=== PATIENT | female | born 1980 | race Caucasian/White ===

== ENCOUNTER 2016-08-18 19:41 | Inpatient (IN) ==
[2016-08-18] MEDS ORDERED: 0.9 % Sodium Chloride 1,000 ML IVC ONE (20:25)
[2016-08-18] MEDS ORDERED: *HR* Morphine 2 MG/ML SYRINGE IVP ONE (20:25)
[2016-08-18] MEDS ORDERED: Ondansetron 4 MG/2 ML VIAL IVP ONE (20:25)
[2016-08-18 20:35] LABS: Bilirubin,Urine Large (Negative); Blood,Urine Large (Negative); Clarity,Urine Cloudy (Clear); Color,Urine Orange (Yellow); Glucose,Urine (UA) Normal (Normal); Ketones,Urine Trace mg/dL (Negative); Leukocyte Esterase,Urine Small (Negative); Nitrite,Urine Negative (Negative); PH,Urine 5.5 pH Units (5.0-8.0); Protein,Urine Negative (Neg-Trace); Specific Gravity,Urine 1.026 (1.010-1.025); Urobilinogen,Urine Normal (Normal)
[2016-08-18 20:36] LABS: Bacteria,Urine None Seen per hpf (None-Few); Hyaline Casts,Urine None Seen per lpf (None-Few); Squamous Epithelial Cell,Urine Many per lpf (None-Few); WBC,Urine 0-3 per hpf (0-3)
[2016-08-18 21:03] LABS: INR 1.6; Prothrombin Time 17.1 Seconds (9.4-12.1)
[2016-08-18 21:05] LABS: Activated Partial Thrombo Time 25.4 Seconds (26.0-36.0)
--- NOTE | 2016-08-18 22:01 | Emergency Department Note ---
Disposition Clinical Impression: Cholecystitis, chronic, Elevated transaminase level Abdominal pain Qualifiers: Abdominal location: unspecified location Qualified Code(s): R10.9 - Unspecified abdominal pain Nausea & vomiting Qualifiers: Vomiting type: unspecified Vomiting Intractability: non-intractable Qualified Code(s): R11.2 - Nausea with vomiting, unspecified Disposition: Admitted As Inpatient Condition: Good Time of Disposition: 01:51 General Adult HPI - General Chief complaint: ED Abdominal Pain Stated complaint: abd pain, yellow skin Time Seen by Provider: 08/18/16 20:18 Source: patient Limitations: no limitations Nursing Notes Reviewed: Yes Vital Signs Reviewed: Yes - History of Present Illness HPI Narrative: Patient presents emergency room today with complaint of jaundice. Family noticed that over the last several days. Patient presented here because she has had intermittent upper abdominal discomfort. She does have a history of IV drug abuse. Currently they are denying fevers chills nausea vomiting diarrhea headaches vision changes chest pain shortness of breath. Her only complaint on presentation here is that her skin and eyes are changing colors Onset (ago): day(s) (5 days) Radiation: non-radiation Pain Severity: mild Pain Scale: 4 Quality: other Consistency: constant Improves with: nothing Worsens with: nothing Associated symptoms: Reports: denies other symptoms Treatments Prior to Arrival: none - Related Data Allergies Allergy/AdvReac Type Severity Reaction Status Date / Time No Known Allergies Allergy Verified 08/18/16 19:56 All systems ED: reviewed and negative except as stated. Constitutional: Denies: fever, chills Eyes: Reports: other (Yellow eyes) Cardiovascular: Denies: chest pain, palpitations Respiratory: Denies: cough, dyspnea, wheezes Gastrointestinal: Reports: nausea, vomiting. Denies: abdominal pain, diarrhea Genitourinary: Denies: dysuria, frequency Musculoskeletal: Denies: back pain Neurological: Denies: headache Psychiatric: Reports: depression Past Medical History - Past Medical History Attestation: Yes The following information was validated with the patient. Source: patient Medical history: Reports: no medical history Psychiatric history: Reports: no psych history - Social History Smoking Status: Current every day smoker Smokeless Tobacco Status: No Alcohol use: Reports: none Drug use: Reports: none Physical Exam - General Limitations: no limitations General appearance: alert, in no apparent distress - Eye Eye exam: Present: normal appearance, PERRL, EOMI, scleral icterus. Absent: conjunctival injection - ENT ENT exam: normal exam, normal oropharynx, mucous membranes moist - Neck Neck exam: Present: normal inspection, full ROM, trachea midline - Chest Chest inspection: Present: normal inspection, symmetric chest wall rise - Respiratory Respiratory exam: Present: normal lung sounds bilaterally - Cardiovascular Cardiovascular exam: Present: regular rate, normal rhythm, normal heart sounds - Abdominal Exam Abdominal exam: Present: soft, tenderness (Mild tenderness to the mid epigastrium and upper quadrant). Absent: Non-Tender, distention, guarding, rebound, rigidity, Locke's sign, Rovsing's sign, tenderness at McBurney's Point - Extremities Exam Extremities exam: Present: normal inspection, full ROM - Neurological Exam Neurological exam: Present: alert, oriented X3, CN II-XII intact, normal gait - Psychiatric Psychiatric exam: Present: normal affect - Skin Skin exam: Present: warm, dry, intact, normal color Course Course Narrative: Patient seen and examined at the time of arrival. See history of present illness. 35-year-old female presenting to the emergency room today in the care of her mother for evaluation of jaundice. Patient has never had jaundice before. Symptom onset was approximately a week ago. Symptoms began getting worse. Patient denies fevers chills nausea vomiting or diarrhea. Denies headache or vision changes.. Patient has a history of IV drug abuse. She does not know if she has hepatitis. Patient has not had any acute abdominal pain over the last several days. She does still have her gallbladder. Physical exam shows a jaundiced appearing female in the eyes sclerae and her oral mucosa. She also has yellowing to her skin. Lungs are clear heart is regular. Abdomen is soft nontender nondistended. no palpable masses or tenderness noted on exam no guarding or rigidity no peritoneal-like symptoms. Patient provided with pain medication as needed nausea medication. She will also have labs CT imaging of the abdomen ordered with concern for acute cholecystitis, cholangitis, hepatitis. Disposition pending workup and evaluation. Vital signs stable patient is afebrile - Reevaluation(s) Reevaluation #1: Patient found to have it appears to be possible acute or chronic cholecystitis. No other acute signs of infectious etiology on CT scan. Imaging is otherwise negative. Labs are coming back with no specific derangements. LFTs are still pending. Disposition undetermined at this time. Vital signs stable throughout the course of care. Patient to have right upper quadrant ultrasound ordered to address for an acute signs of cholecystitis. We will continue to monitor as his imaging source is completed. Time: 22:25 Reevaluation #2: Patient found to have wall thickening stranding and pericholecystic fluid by ultrasound. Transaminases are also significantly elevated. We contacted the on -call surgeon Dr. Blunt. We reviewed the patient's [place] presentation medical history. He feels this is most likely medical related issues including acute hepatitis. He recommended hospital admission and will follow along in consultation. Hospitalist was contacted. and I reviewed the patient's presentation symptoms medical issues. He recommended antibiotic regimen and chest x-ray for thoroughness of course of care. Otherwise he had no other concerns at this point the patient Yue the hospital for evaluation of jaundice, liver use, possible acute on chronic cholecystitis. Patient is comfortable performed the plan. She is resting in the bed at this time. Antibiotic regimen to be started. IV access obtained. We will continue monitoring in emergency room until the admission process is completed Time: 01:49 Vital Signs Temperature 98.0 F 08/18/16 19:56 Pulse Rate 76 08/18/16 19:56 Respiratory Rate 16 08/18/16 19:56 Blood Pressure 117/76 08/18/16 19:56 O2 Sat by Pulse Oximetry 98 08/18/16 19:56 Temperature 98.0 F 08/18/16 19:56 Pulse Rate 75 08/19/16 01:43 Respiratory Rate 20 08/19/16 01:43 Blood Pressure 119/89 08/19/16 01:43 O2 Sat by Pulse Oximetry 97 08/19/16 01:43 Oxygen Delivery Oxygen Delivery Room Air Medical Decision Making - MDM Narrative Medical decision making narrative: Acute biliary obstruction, elevated transaminases, jaundice, rule out cholecystitis - Medical Records Medical records reviewed: Yes I reviewed the patient's medical records. - Lab Data Lab results reviewed: Yes I reviewed the patient's lab results. Result diagrams: 08/18/16 22:15 08/18/16 22:15 Lab Results 08/18/16 08/18/16 08/18/16 Range/Units 20:20 20:20 20:47 WBC (4.3-11.1) K/mcL RBC (3.82-4.97) M/mcL Hgb (11.5-15.4) g/dL Hct (35.3-44.9) % MCV (83.0-100.0) fL MCH (28.0-33.3) pg MCHC (31.6-35.5) g/dL RDW (11.5-14.5) % Plt Count (140-400) K/mcL MPV (9.4-12.4) fL Immature Gran % (0-4) % Seg Neutrophils % % Lymphocytes % % Monocytes % % Eosinophils % % Basophils % % Neutrophils # (1.6-8.9) K/mcL Lymphocytes # (0.6-4.6) K/mcL Monocytes # (0.0-1.3) K/mcL Eosinophils # (0.0-0.6) K/mcL Basophils # (0.0-0.2) K/mcL Immature Plt Fraction (1.1-6.1) % PT 17.1 H (9.4-12.1) Seconds INR 1.6 APTT 25.4 L (26.0-36.0) Seconds Sodium (136-145) mEq/L Potassium (3.5-4.5) mEq/L Chloride (98-109) mEq/L Carbon Dioxide (19-29) mEq/L BUN (7-20) mg/dL Creatinine (0.57-1.11) mg/dL Est GFR ( Amer) (> 60) Est GFR (Non-Af Amer) (> 60) BUN/Creatinine Ratio (6-26) Glucose (70-99) mg/dL Calculated Osmolality (280-300) Calcium (8.6-10.8) mg/dL Total Bilirubin (0.2-1.2) mg/dL Direct Bilirubin (0.0-0.5) mg/dL Indirect Bilirubin (0.0-1.2) mg/dL AST (5-34) Units/L ALT (0-55) Units/L Alkaline Phosphatase (38-126) Units/L Serum Total Protein (6.0-8.3) g/dL Albumin (3.5-5.0) g/dL Globulin (2.4-3.5) g/dL Albumin/Globulin Ratio (1.1-2.2) Lipase (8-78) Units/L Urine Color [place] A (Yellow) Urine Clarity Cloudy A (Clear) Urine pH 5.5 (5.0-8.0) pH Units Ur Specific [place] 1.026 H (1.010-1.025) Urine Protein Negative (Neg-Trace) mg/dL Urine Glucose (UA) Normal (Normal) mg/dL Urine Ketones Trace H (Negative) mg/dL Urine Blood Large H (Negative) Urine Nitrite Negative (Negative) Urine Bilirubin Large H (Negative) Urine Urobilinogen Normal (Normal) mg/dL Ur Leukocyte Esterase Small H (Negative) Urine Microscopic RBC 5-15 H (0-3) per hpf Urine Microscopic WBC 0-3 (0-3) per hpf Ur Squamous Epith Cells Many H (None-Few) per lpf Urine Bacteria None Seen (None-Few) per hpf Hyaline Casts None Seen (None-Few) per lpf Ur Culture Indicated? YES A (NO) Urine Test Negative (Negative) Specimen Rejected 08/18/16 08/18/16 08/18/16 Range/Units 21:01 21:04 22:15 WBC 6.0 (4.3-11.1) K/mcL RBC 3.88 (3.82-4.97) M/mcL Hgb 11.0 L (11.5-15.4) g/dL Hct 32.5 L (35.3-44.9) % MCV 83.8 (83.0-100.0) fL MCH 28.4 (28.0-33.3) pg MCHC 33.8 (31.6-35.5) g/dL RDW 19.2 H (11.5-14.5) % Plt Count 191 (140-400) K/mcL MPV 11.8 (9.4-12.4) fL Immature Gran % 0.3 (0-4) % Seg Neutrophils % 59.6 % Lymphocytes % 26.5 % Monocytes % 10.9 % Eosinophils % 2.0 % Basophils % 0.7 % Neutrophils # 3.6 (1.6-8.9) K/mcL Lymphocytes # 1.6 (0.6-4.6) K/mcL Monocytes # 0.7 (0.0-1.3) K/mcL Eosinophils # 0.1 (0.0-0.6) K/mcL Basophils # 0.0 (0.0-0.2) K/mcL Immature Plt Fraction 6.9 H (1.1-6.1) % PT (9.4-12.1) Seconds INR APTT (26.0-36.0) Seconds Sodium (136-145) mEq/L Potassium (3.5-4.5) mEq/L Chloride (98-109) mEq/L Carbon Dioxide (19-29) mEq/L BUN (7-20) mg/dL Creatinine (0.57-1.11) mg/dL Est GFR ( Amer) (> 60) Est GFR (Non-Af Amer) (> 60) BUN/Creatinine Ratio (6-26) Glucose (70-99) mg/dL Calculated Osmolality (280-300) Calcium (8.6-10.8) mg/dL Total Bilirubin (0.2-1.2) mg/dL Direct Bilirubin (0.0-0.5) mg/dL Indirect Bilirubin (0.0-1.2) mg/dL AST (5-34) Units/L ALT (0-55) Units/L Alkaline Phosphatase (38-126) Units/L Serum Total Protein (6.0-8.3) g/dL Albumin (3.5-5.0) g/dL Globulin (2.4-3.5) g/dL Albumin/Globulin Ratio (1.1-2.2) Lipase (8-78) Units/L Urine Color (Yellow) Urine Clarity (Clear) Urine pH (5.0-8.0) pH Units Ur Specific [place] (1.010-1.025) Urine Protein (Neg-Trace) mg/dL Urine Glucose (UA) (Normal) mg/dL Urine Ketones (Negative) mg/dL Urine Blood (Negative) Urine Nitrite (Negative) Urine Bilirubin (Negative) Urine Urobilinogen (Normal) mg/dL Ur Leukocyte Esterase (Negative) Urine Microscopic RBC (0-3) per hpf Urine Microscopic WBC (0-3) per hpf Ur Squamous Epith Cells (None-Few) per lpf Urine Bacteria (None-Few) per hpf Hyaline Casts (None-Few) per lpf Ur Culture Indicated? (NO) Urine Test (Negative) Specimen Rejected Miscellaneous Hemolyzed 08/18/16 Range/Units 22:15 WBC (4.3-11.1) K/mcL RBC (3.82-4.97) M/mcL Hgb (11.5-15.4) g/dL Hct (35.3-44.9) % MCV (83.0-100.0) fL MCH (28.0-33.3) pg MCHC (31.6-35.5) g/dL RDW (11.5-14.5) % Plt Count (140-400) K/mcL MPV (9.4-12.4) fL Immature Gran % (0-4) % Seg Neutrophils % % Lymphocytes % % Monocytes % % Eosinophils % % Basophils % % Neutrophils # (1.6-8.9) K/mcL Lymphocytes # (0.6-4.6) K/mcL Monocytes # (0.0-1.3) K/mcL Eosinophils # (0.0-0.6) K/mcL Basophils # (0.0-0.2) K/mcL Immature Plt Fraction (1.1-6.1) % PT (9.4-12.1) Seconds INR APTT (26.0-36.0) Seconds Sodium 137 (136-145) mEq/L Potassium 3.4 L (3.5-4.5) mEq/L Chloride 106 (98-109) mEq/L Carbon Dioxide 24 (19-29) mEq/L BUN 7 (7-20) mg/dL Creatinine 0.66 (0.57-1.11) mg/dL Est GFR ( Amer) > 60 (> 60) Est GFR (Non-Af Amer) > 60 (> 60) BUN/Creatinine Ratio 11 (6-26) Glucose 96 (70-99) mg/dL Calculated Osmolality 282 (280-300) Calcium 8.5 L (8.6-10.8) mg/dL Total Bilirubin 11.3 H (0.2-1.2) mg/dL Direct Bilirubin 8.5 H (0.0-0.5) mg/dL Indirect Bilirubin 2.8 H (0.0-1.2) mg/dL AST 1228 H (5-34) Units/L ALT 992 H (0-55) Units/L Alkaline Phosphatase 269 H (38-126) Units/L Serum Total Protein 5.9 L (6.0-8.3) g/dL Albumin 2.4 L (3.5-5.0) g/dL Globulin 3.5 (2.4-3.5) g/dL Albumin/Globulin Ratio 0.7 L (1.1-2.2) Lipase 23 (8-78) Units/L Urine Color (Yellow) Urine Clarity (Clear) Urine pH (5.0-8.0) pH Units Ur Specific [place] (1.010-1.025) Urine Protein (Neg-Trace) mg/dL Urine Glucose (UA) (Normal) mg/dL Urine Ketones (Negative) mg/dL Urine Blood (Negative) Urine Nitrite (Negative) Urine Bilirubin (Negative) Urine Urobilinogen (Normal) mg/dL Ur Leukocyte Esterase (Negative) Urine Microscopic RBC (0-3) per hpf Urine Microscopic WBC (0-3) per hpf Ur Squamous Epith Cells (None-Few) per lpf Urine Bacteria (None-Few) per hpf Hyaline Casts (None-Few) per lpf Ur Culture Indicated? (NO) Urine Test (Negative) Specimen Rejected - Radiology Data Radiology results reviewed: Yes I reviewed the patient's radiology results. CT imaging is concerning for nonobstructive gallbladder related illness. Ultrasound confirms wall thickening with inflammation and stranding around the gallbladder itself. No visible dilated common bile duct at this time. Attestation Statement - Attestation Attestation: I examined this patient and my medical decision-making was reviewed with the [employer] P[employer] ASSEMBLY MACHINE OPERATOR/PA/Advanced Practice Nurse/Resident Physician. I agree with the documented findings, disposition and treatment plan as described except to the extent set forth below. Patient presents to the emergency department complaining of jaundice. Mom is a nurse and states she noticed it about a week ago. Patient has a history of IV drug use. Denies any history of hepatitis that she knows of. On examination she is severely jaundiced. Abdomen soft with epigastric tenderness. Plan. Labs hepatitis profile. CT abdomen. Patient with likely chronic cholecystitis. Discussed with surgery who will see in consult. Antibiotic given. Admitted to medicine.
[2016-08-18] MEDS ORDERED: *HR* HYDROcodone/Acet 5/325 mg TABLET PO ONE (22:24)
[2016-08-18] MEDS ORDERED: Famotidine 20 MG TABLET PO ONE (22:24)
[2016-08-18 22:28] LABS: Basophils % 0.7 %; Eosinophils # 0.1 K/mcL (0.0-0.6); Hematocrit 32.5 % (35.3-44.9); Immature Granulocytes % 0.3 % (0-4); Immature Platelets 6.9 % (1.1-6.1); Lymphocytes # 1.6 K/mcL (0.6-4.6); Lymphocytes % 26.5 %; Mean Corpuscular HGB Conc 33.8 g/dL (31.6-35.5); Mean Corpuscular Hemoglobin 28.4 pg (28.0-33.3); Mean Corpuscular Volume 83.8 fL (83.0-100.0); Mean Platelet Volume 11.8 fL (9.4-12.4); Monocytes # 0.7 K/mcL (0.0-1.3); Monocytes % 10.9 %; Neutrophils # 3.6 K/mcL (1.6-8.9); Platelet Count 191 K/mcL (140-400); Red Blood Count 3.88 M/mcL (3.82-4.97); Red Cell Distribution Width 19.2 % (11.5-14.5); Segmented Neutrophils % 59.6 %
[2016-08-18 22:42] LABS: Alanine Aminotransferase 992 Units/L (0-55); Albumin 2.4 g/dL (3.5-5.0); Albumin/Globulin Ratio 0.7 (1.1-2.2); Alkaline Phosphatase 269 Units/L (38-126); Aspartate Amino Transferase 1228 Units/L (5-34); BUN/Creatinine Ratio 11 (6-26); Bilirubin,Direct 8.5 mg/dL (0.0-0.5); Bilirubin,Indirect 2.8 mg/dL (0.0-1.2); Blood Urea Nitrogen 7 mg/dL (7-20); Calcium 8.5 mg/dL (8.6-10.8); Carbon Dioxide 24 mEq/L (19-29); Chloride 106 mEq/L (98-109); Globulin 3.5 g/dL (2.4-3.5); Glucose 96 mg/dL (70-99); Lipase 23 Units/L (8-78); Osmolality,Calculated 282 (280-300); Potassium 3.4 mEq/L (3.5-4.5); Sodium 137 mEq/L (136-145); Total Protein 5.9 g/dL (6.0-8.3); eGFR For African Americans > 60 (> 60); eGFR For Non-African Americans > 60 (> 60)
[2016-08-18 22:43] LABS: Bilirubin,Total 11.3 mg/dL (0.2-1.2)
[2016-08-19] MEDS ORDERED: Piperacillin/Tazobactam 3.375 GM in D5% in Water (Mini-Bag+) 100 ML IVPB ONE (01:26)
--- NOTE | 2016-08-19 02:47 | Event Note ---
Date of Encounter: 08/19/16 Time of Encounter: 02:39 Patient seen and examined with medical staffing coordinator. 35-year-old intravenous drug abuser or has been shooting heroin intravenously for the past 5 years presents to the emergency room today with yellowish discoloration of her sclera. Patient as well as her family noticed that her eyes are becoming yellow. She has also noticed that her urine is becoming darker in color. Her appetite has been poor has been having episodes of vomiting in the morning that is none bloody nonbilious. She has been having upper mid abdominal pain. She has been also having chills she had lost 20 pounds in the past [address] scan performed in the emergency room showed no evidence of bile duct dilation. No prior history of liver gallbladder problems. No prior history of hepatitis or HIV. She denies any chest pain or shortness of breath. She mentioned that she had 2 episodes of seizures the past week. Suspect viral hepatitis related to drug abuse. Picture of obstructive jaundice suggest cholestatic viral hepatitis. Will check hepatitis markers. There is no cardiac murmur. Will also check echocardiogram to look for vegetations. CT scan of the head with contrast will be performed to rule out any intracranial pathology as a cause of seizure. Her abdominal CT scan is showing thickening in the gallbladder wall and pericholycystic fluid so she will be kept empirically on Zosyn. Gastroenterology consultation.
--- NOTE | 2016-08-19 04:22 | Internal Med History&Physical ---
Date of Encounter: 08/19/16 Time of Encounter: 03:15 Assessment and Plan (1) Hepatitis Current visit: Yes Status: Acute Patient's labs suggestive of obstructive jaundice versus viral hepatitis. Elevated transaminases upon admission to the hospital A. Total bilirubin 11.3 and direct bilirubin 8.5. INR elevated at 1.6. Albumin 2.4. Patient with jaundice upon presentation. History of IV drug use. Etiology of hepatitis is uncertain at this point. While CT abdomen and US gallbladder demonstrate GB wall thickening with pericholecystic fluid, no ductal dilation is present. Plan: Hepatitis panel, pending HIV 1 & 2, patient gave verbal consent IVF 100mL/hr (2) Syncope and collapse Current visit: Yes Status: Acute Patient with episode of syncope 2-3 weeks ago in which she fell and landed on her head on the floor. Unclear whether this episode is related to weakness and fatigue or seizure activity. Given patient's vague neurologic complaints and due to history of IVDA, there is concern for endocarditis and vegetative emboli. Plan: CT head with contrast EEG Transthoracic ECHO Blood cultures x 2 CRP, ESR (3) Cholecystitis, chronic Current visit: Yes Status: Acute CT wtih evidence of a contracted GB with wall thickening and pericholecystic fluid. Gallbladder ultrasound demonstrates no ductal dilation. Cholecystitis does not appear to be the etiology of patient's jaundice. Plan: HIDA scan to rules out sphincter of Oddi dysfunction Hold pain medications Continue Zosyn until HIDA scan is performed IVF 100mL/hr (4) IV drug abuse Current visit: Yes Status: Acute Patient states that she is interested in seeking treatment creative services writer consult (5) Hypokalemia Current visit: Yes Status: Acute Replaced 20 mEq potassium po Repeat labs in am (6) DVT prophylaxis Current visit: Yes Status: Acute Lovenox Internal Medicine - H&P: HPI Chief complaint: jaundice Admitted From: Emergency Dept Plans for Post Hospital Care: Home History of present illness: Ms. Gonzáles is a 35 year old female who presents with three-day history of jaundice. She states that she has been vomiting for one week. She notices that her urine is dark. She admits to periumbilical abdominal pain and pelvic pain. She has a history of IV drug use. Last use was one week ago. Patient states that she does not share needles. However, she claims that she uses her friend's mother's insulin needles for injecting heroin. Patient states that she knows a number of people with hepatitis C. She denies getting a tattoo or blood transfusion. She has been in a monogamous sexual relationship for 14 years. Patient admits to recent weakness, fatigue, 20 pound weight loss over the last 3 -4 months. Patient had episode of syncope 2-3 weeks ago in which she fell in her bathroom. Her head landed on the floor. Prior that day, she had had an episode in which she climbed a flight of stairs, became very weak, and the left side of her body started shaking uncontrollably. She states that she was not using drugs at the time. She believes that she may have had a seizure. In the past month, she admits to numbness on the left scalp and dizziness. Denies headache, blurry vision, double vision, night sweats, chest pain, dyspnea, dysuria, hematuria, muscle aches, weakness or numbness in extremities. She lives at home with her boyfriend and 2 daughters. Patient's daughters are being cared for by her mother at this time. Past Med Surg Social Fam HX - Past Medical History Medical history: no medical history Psychiatric history: no psych history - Past Surgical History Surgical History: (and tubal ligation) - Social History Smoking Status: Current every day smoker (1ppd x 20 years) Packs per day: 1 Smokeless Tobacco Status: No Alcohol use: none Drug use: IVDU (heroin), prescription drug abuse (xanax) Current living situation: Home, With Family - Family History Mother Hx Family Cancer: Yes (cervical cancer) Internal Medicine - H&P: Meds Allergies No Known Allergies Allergy (Verified 08/18/16 19:56) All Systems PM: A 10-system review of systems was performed and is negative for pertinent findings except as documented above in the HPI. Review of systems: As per HPI. - Constitutional Vitals: Temp Pulse Resp BP Pulse Ox 97.8 F 67 18 120/83 98 08/19/16 02:46 08/19/16 02:46 08/19/16 02:46 08/19/16 02:46 08/19/16 02:46 General appearance: Present: A&O X 3, answers questions appropriately - Head Head exam: Present: atraumatic, normal inspection, normocephalic - Eye Eye exam: Present: EOMI, PERRL, scleral icterus - ENT ENT exam: Present: mucous membranes moist (base of tongue jaundice) - Neck Neck exam general surgery: Present: full ROM, normal inspection, supple - Respiratory Respiratory exam: Present: CTAB. Absent: respiratory distress, rhonchi, wheezes , tachypnea - Cardiovascular Cardiovascular exam: Present: RRR, +S1, +S2. Absent: rubs - GI/Abdominal GI/Abdominal exam: Present: normal bowel sounds, soft, tenderness (RUQ, LUQ), no peritoneal signs - Extremities Exam Extremities exam: Present: warm. Absent: pedal edema - Neurological Exam Neurological exam: Present: no focal deficits, strengths equal and symetr throughout. Absent: motor sensory deficit, facial droop, speech deficit - Skin Additional comments: jaundice Internal Med - H&P Results - Labs CBC & Chem 7: 08/18/16 22:15 08/18/16 22:15
[2016-08-19] MEDS ORDERED: Naloxone 0.4 MG/ML INJ IVP PRN (04:29)
[2016-08-19] MEDS ORDERED: Ibuprofen 400 MG TABLET PO PRN (04:29)
[2016-08-19] MEDS ORDERED: *HR* Morphine 2 MG/ML SYRINGE IVP PRN (04:29)
[2016-08-19] MEDS: *HR* Enoxaparin 40 MG/0.4 ML SYRINGE SQ SCH (05:16)
[2016-08-19] MEDS: 0.9 % Sodium Chloride 1,000 ML IVC SCH ×2 (05:16→22:12)
--- NOTE | 2016-08-19 12:45 | ECHO - Doppler Report ---
Echo with Saline Contrast Name: Portillo Gonzáles Date of Study: 08/19/2016 Date: 1980 Ht: 66.0 in Medical Record#: [id number] Age: 35 Wt: 170.0 lb Gender: Female BSA: 1.87 Order #: [id number] Location: [facility] Room #: [id number] Reading Physician: Ludmila Hernandez DO Fur Matcher: Dina Lambert Ordering Physician: Julia Knutson DO Primary Physician: None Indications: Syncope and collapse, IVDU r/o endocarditis Impressions: LVEF 65%. Normal left ventricular size and systolic function. Normal diastolic function of the left ventricle. Normal right ventricular size and function. Mild tricuspid regurgitation. No pulmonary hypertension. No PFO with saline contrast. No evidence for valve vegetation. Left Ventricular Wall Motion: Rest Echo Findings All wall segments showed normal motion. Findings: Study Quality * Technically adequate exam. ECG Findings * Sinus bradycardia. Left Ventricle * LVEF 65%. * Normal LV chamber size, wall thickness and function. * Normal left ventricular diastolic function. Left Atrium * Normal left atrial size. Mitral Valve * Normal mitral valve structure. * No mitral stenosis. * No mitral regurgitation. Aortic Valve * No aortic regurgitation. * Trileaflet aortic valve. * Normal aortic valve structure. * No aortic stenosis. Tricuspid Valve * Normal tricuspid valve structure. * Mild tricuspid regurgitation. * Estimated RA pressure is 3 mmHg. * Estimated RVSP is 31 mmHg. * No pulmonary hypertension. Pulmonic Valve * Pulmonic valve is not well visualized. * No pulmonic stenosis. * No pulmonic regurgitation. Pulmonary Artery * Pulmonary artery not well visualized. Right Ventricle * Normal right ventricular structure and function. Right Atrium * Normal right atrial size. Interatrial Septum * No evidence of PFO by color Doppler. * No evidence of PFO with agitated saline contrast. IVC * Normal IVC dimensions and inspiratory collapse. Pericardium * There is no pericardial effusion present. Aorta * Normally sized aortic root. History History of Smoking Years 20 Packs 1 Family History of CAD 04/30/2013 a Previous Echo was performed. Contrast: Agitated saline 20 ml. Measurements: BP: 120/ 83 2D Normal Values RVIDd: 2.80 cm <2.7 cm IVSd: .80 cm 0.6 - 1.0 cm LVIDd: 4.70 cm 3.7 - 5.6 cm LVPWd: .80 cm 0.6 - 1.1 cm LVIDs: 2.80 cm 1.5 - 3.6 cm AO: 2.40 cm < 4.0 cm LA: 4.00 cm 2.0 - 4.0cm %FS: 40.40 cm >25 % LA volume: 54 Mitral Valve Peak E:.79 m/sec Peak A:.52 m/sec E/A Ratio:1.5 Peak E' Lat Gio:15.7 cm/s Peak E' Med Gio:9.36 cm/s E/E' Lat Ratio:5 E/E' Med Ratio:8.4 Tricuspid Valve TV Regurg Peak Grad: 28.00mmHg TV Regurg Peak Gio: 2.65m/sec Updated by Ludmila Hernandez on 08/19/2016 12:37:19 PM electronically signed on 08/19/2016 12:38:35 PM with status of Final Wall Motion Win: 1=Normal, 2=Hypokinesis, 3=Akinesis, 4=Dyskinesis, 5=Aneurysmal, 6=Hyperkinetic, X=Not Visualized (Blank)=Missing
[2016-08-19] MEDS: *HR* Morphine 2 MG/ML SYRINGE IVP PRN ×2 (13:46→22:11)
[2016-08-19 14:10] LABS: Basophils % 0.3 %; Eosinophils # 0.1 K/mcL (0.0-0.6); Eosinophils % 1.4 %; Hematocrit 34.6 % (35.3-44.9); Hemoglobin 11.8 g/dL (11.5-15.4); Immature Granulocytes % 0.3 % (0-4); Lymphocytes # 1.4 K/mcL (0.6-4.6); Lymphocytes % 21.6 %; Mean Corpuscular HGB Conc 34.1 g/dL (31.6-35.5); Mean Corpuscular Hemoglobin 28.1 pg (28.0-33.3); Mean Corpuscular Volume 82.4 fL (83.0-100.0); Mean Platelet Volume 11.9 fL (9.4-12.4); Monocytes # 0.7 K/mcL (0.0-1.3); Monocytes % 10.4 %; Neutrophils # 4.2 K/mcL (1.6-8.9); Platelet Count 212 K/mcL (140-400); Red Cell Distribution Width 19.6 % (11.5-14.5)
[2016-08-19 14:26] LABS: Alanine Aminotransferase 1057 Units/L (0-55); Albumin 2.4 g/dL (3.5-5.0); Albumin/Globulin Ratio 0.8 (1.1-2.2); Alkaline Phosphatase 281 Units/L (38-126); Aspartate Amino Transferase 1584 Units/L (5-34); BUN/Creatinine Ratio 9 (6-26); Blood Urea Nitrogen 6 mg/dL (7-20); Carbon Dioxide 20 mEq/L (19-29); Chloride 112 mEq/L (98-109); Globulin 3.2 g/dL (2.4-3.5); Glucose 72 mg/dL (70-99); Magnesium 1.5 mg/dL (1.6-2.6); Osmolality,Calculated 282 (280-300); Phosphorous 3.1 mg/dL (2.3-4.7); Potassium 4.3 mEq/L (3.5-4.5); Sodium 138 mEq/L (136-145); Total Protein 5.6 g/dL (6.0-8.3); eGFR For African Americans > 60 (> 60); eGFR For Non-African Americans > 60 (> 60)
[2016-08-19 14:27] LABS: Bilirubin,Total 12.6 mg/dL (0.2-1.2)
[2016-08-19] MEDS ORDERED: Magnesium Sulfate 1 GM in D5% in Water 100 ML IVPB ONE (14:38)
[2016-08-19] MEDS: Nicotine 21 MG PATCH.TD24 TD SCH (14:52)
--- NOTE | 2016-08-19 15:04 | Internal Med Progress Note ---
Date of Encounter: 08/19/16 Time of Encounter: 15:02 - Assessment and plan (1) Elevated transaminase level Current Visit: Yes Status: Acute Assessment and plan: History of IV drug abuse, last use of heroin last week awaiting hepatitis serologies HIDA scan reported cystic duct obstruction GI consult requested with Dr. Crowe (Dr. Crowe will see the patient in am) continue supportive care IV fluids pain management (2) Cholecystitis, chronic Current Visit: Yes Status: Acute Assessment and plan: Will continue Zosyn IV fluids will keep NPO after midnight for any GI workup in am (ERCP?) (3) DVT prophylaxis Current Visit: Yes Status: Acute Assessment and plan: Lovenox SQ (4) IV drug abuse Current Visit: Yes Status: Chronic Assessment and plan: 2D echo negative for vegetations, mild tricuspid regurgitation noted (5) Syncope and collapse Current Visit: Yes Status: Acute Assessment and plan: CT head negative for any acute intracranial abnormalities no syncopal episodes noted since hospitalization (6) Tobacco abuse Current Visit: Yes Status: Acute Assessment and plan: smoking cessation counseling provided patient not ready to quit at this time nicotine replacement therapy provided - Subjective Interval history: Patient seen and examined with her mother present at bedside. Reports of improvement in pain and nausea with the current medication regimen. Her mother states that patient appears to be less yellow today compared to yesterday. - Constitutional Vitals: Temp Pulse Resp BP Pulse Ox 97.5 F L 69 14 116/77 94 L 08/19/16 07:20 08/19/16 07:20 08/19/16 07:20 08/19/16 07:20 08/19/16 07:20 General appearance: Present: disheveled, A&O X 3 (jaundiced), no acute distress , answers questions appropriately - Head Head exam: Present: atraumatic, normocephalic - Eye Eye exam: Present: normal appearance, scleral icterus - Respiratory Respiratory exam: Present: CTAB. Absent: respiratory distress, wheezes - Cardiovascular Cardiovascular exam: Present: RRR, +S1, +S2 - GI/Abdominal GI/Abdominal exam: Present: normal bowel sounds, soft, no peritoneal signs. Absent: distended, rebound, tenderness - Extremities Exam Extremities exam: Present: pedal edema, warm, radial pulses palpable and symetrical. Absent: calf tenderness - Neurological Exam Neurological exam: Present: alert, oriented X3 - Psychiatric Psychiatric exam: Present: normal affect, normal mood Internal Medicine: Result - Labs CBC & Chem 7: 08/19/16 14:04 08/19/16 14:04 Labs: Short CBC 08/19/16 Range/Units 14:04 WBC 6.4 (4.3-11.1) K/mcL Hgb 11.8 (11.5-15.4) g/dL Hct 34.6 L (35.3-44.9) % Plt Count 212 (140-400) K/mcL Neutrophils # 4.2 (1.6-8.9) K/mcL BMP 08/19/16 14:04 Sodium 138 Potassium 4.3 Chloride 112 H Carbon Dioxide 20 BUN 6 L Creatinine 0.67 Glucose 72 Calcium 8.0 L Liver Function 08/19/16 Range/Units 14:04 Total Bilirubin 12.6 H (0.2-1.2) mg/dL AST 1584 H (5-34) Units/L ALT 1057 H (0-55) Units/L Alkaline Phosphatase 281 H (38-126) Units/L Albumin 2.4 L (3.5-5.0) g/dL - ABG Interpretation ABG results: PT/INR, D-dimer PT 17.1 Seconds (9.4-12.1) H 08/18/16 20:47 - Impressions Impressions Head CT 08/19/16 04:32 IMPRESSION: No acute intracranial abnormality. D/ / Eduar Mariee MD / Eduar Mariee MD Interpreting Provider: Eduar Mariee MD Bile Acid Absorption NM 08/19/16 04:45 IMPRESSION: Nonvisualization of the gallbladder at 2 hours D/ / Gregory Camilo MD / Gregory Camilo MD Interpreting Provider: Gregory Camilo MD Consult Discharge Plan - Plan Referrals: NO,PCP [Primary Care Provider] -
[2016-08-19] MEDS: Piperacillin/Tazobactam 3.375 GM in D5% in Water (Mini-Bag+) 100 ML IVPB SCH ×2 (15:09→22:11)
--- NOTE | 2016-08-19 18:47 | Neurology - Consult Note ---
Date of Encounter: 08/19/16 Time of Encounter: 18:47 Assessment and Plan (1) Syncope and collapse Current Visit: Yes Status: Acute She apparently had a history of seizures in the past, and it for the past several years off and on not very frequent neither had any workup neither on any medication for it this time does not seem like a typical seizure. Since is getting an EEG check for any underlying metabolic or any other abnormality. With a history of drug abuse and other metabolic abnormalities were not recommended starting her on any seizure medication at this time unless we see any abnormality on EEG. Other workup for syncope and collapse is as per primary team History of Present Illness HPI: Ms. Gonzáles is a 35 year old female who presents with three-day history of jaundice. She states that she has been vomiting for one week. She notices that her urine is dark. She admits to abdominal pain and pelvic pain. She has a history of IV drug use. Last use was one week ago. Patient admits to recent weakness, fatigue, 20 pound weight loss over the last 3 -4 months. Patient had episode of syncope 2-3 weeks ago in which she fell in her bathroom. She believes that she may have had a seizure. she has history of seizures in past about one every year or so, never had workup for it neihter seen by a neurologist, not on any meds for seizures. Denies headache, blurry vision, double vision, night sweats, chest pain, dyspnea , dysuria, hematuria, muscle aches, weakness or numbness in extremities. Past Med Surg Social Fam HX - Past Medical History Medical history: no medical history Psychiatric history: no psych history - Past Surgical History Surgical History: (and tubal ligation) - Social History Smoking Status: Current every day smoker (1ppd x 20 years) Packs per day: 1 Smokeless Tobacco Status: No Alcohol use: none Drug use: IVDU (heroin), prescription drug abuse (xanax) - Family History Mother Hx Family Cancer: Yes (cervical cancer) Medications and Allergies Allergies No Known Allergies Allergy (Verified 08/18/16 19:56) All Systems: A 10-system review of systems was performed and is negative for pertinent findings except as documented above in the HPI. Physical Examination - Vital Signs Vital Signs: Initial Vital Signs Temp Pulse Resp BP Pulse Ox 98.0 F 76 16 117/76 98 08/18/16 19:56 08/18/16 19:56 08/18/16 19:56 08/18/16 19:56 08/18/16 19:56 - Exam Exam: heart s1 s2 audible, LUng : CTA, EXT no pedal edema - Constitutional General appearance: comfortable - Neurologic Detailed motor examination: full strength in all major muscle groups Motor examination - right side: 11/09: deltoids, biceps, triceps, wrist flexion, wrist extension, mail sorter and delivery, hip flexors, tibialis Anterior, quadriceps, toe extension (EHL), plantarflexion Motor examination - left side: 11/09: deltoids, biceps, triceps, wrist flexion, wrist extension, hip flexors, mail sorter and delivery, quadriceps, tibialis Anterior, toe extension (EHL), plantarflexion Mental Status Examination: awake, alert, oriented to person, oriented to place, oriented to time, follows commands appropriately, answers questions appropriately, no agnosia, no aphasia, no aproxia Cranial nerve examination: PERRL, EOMI, visual wong intact, corneal reflexes brisk symmetrically, sensory to face intact, mastication intact, no facial asymmetry is present, no dysarthria, hearing is intact symmetrically, soft palate elevates bilaterally upon phonation, gag reflex intact, flexes SCM and trapezius muscles symmetrically with full power, tongue protrudes midline, no atrophy or facial fasiculations present Cerebellar examination: no dysmetria, performs finger to nose and heel to [place] symmetrically without ataxia, no gait ataxia, no truncal ataxia, no difficulty with rapid alternating movements Results - Laboratory Findings CBC and BMP: 08/20/16 05:23 08/20/16 05:23 Abnormal lab findings: Abnormal lab results Hct 34.6 % (35.3-44.9) L 08/19/16 14:04 MCV 82.4 fL (83.0-100.0) L 08/19/16 14:04 RDW 19.6 % (11.5-14.5) H 08/19/16 14:04 Immature Plt Fraction 6.9 % (1.1-6.1) H 08/18/16 22:15 PT 17.1 Seconds (9.4-12.1) H 08/18/16 20:47 APTT 25.4 Seconds (26.0-36.0) L 08/18/16 20:47 Chloride 112 mEq/L (98-109) H 08/19/16 14:04 BUN 6 mg/dL (7-20) L 08/19/16 14:04 Calcium 8.0 mg/dL (8.6-10.8) L 08/19/16 14:04 Magnesium 1.5 mg/dL (1.6-2.6) L 08/19/16 14:04 Total Bilirubin 12.6 mg/dL (0.2-1.2) H 08/19/16 14:04 Direct Bilirubin 8.5 mg/dL (0.0-0.5) H 08/18/16 22:15 Indirect Bilirubin 2.8 mg/dL (0.0-1.2) H 08/18/16 22:15 AST 1584 Units/L (5-34) H 08/19/16 14:04 ALT 1057 Units/L (0-55) H 08/19/16 14:04 Alkaline Phosphatase 281 Units/L (38-126) H 08/19/16 14:04 C-Reactive Protein 7 mg/L (Less than 5) H 08/19/16 06:52 Serum Total Protein 5.6 g/dL (6.0-8.3) L 08/19/16 14:04 Albumin 2.4 g/dL (3.5-5.0) L 08/19/16 14:04 Albumin/Globulin Ratio 0.8 (1.1-2.2) L 08/19/16 14:04 Urine Color [place] (Yellow) A 08/18/16 20:20 Urine Clarity Cloudy (Clear) A 08/18/16 20:20 Ur Specific [place] 1.026 (1.010-1.025) H 08/18/16 20:20 Urine Ketones Trace mg/dL (Negative) H 08/18/16 20:20 Urine Blood Large (Negative) H 08/18/16 20:20 Urine Bilirubin Large (Negative) H 08/18/16 20:20 Ur Leukocyte Esterase Small (Negative) H 08/18/16 20:20 Urine Microscopic RBC 5-15 per hpf (0-3) H 08/18/16 20:20 Ur Squamous Epith Cells Many per lpf (None-Few) H 08/18/16 20:20 Ur Culture Indicated? YES (NO) A 08/18/16 20:20 Consult Discharge Plan - Plan Referrals: NO,PCP [Primary Care Provider] -
[2016-08-19] MEDS: *HR* OxyCODONE Immed Rel 5 MG TABLET PO PRN (19:34)
[2016-08-19] MEDS: Ondansetron 4 MG/2 ML VIAL IVP PRN (19:35)
[2016-08-20] MEDS: *HR* OxyCODONE Immed Rel 5 MG TABLET PO PRN ×2 (02:08→10:50)
[2016-08-20] MEDS: *HR* Morphine 2 MG/ML SYRINGE IVP PRN ×5 (04:02→21:11)
[2016-08-20] MEDS: Ondansetron 4 MG/2 ML VIAL IVP PRN ×2 (04:10→10:45)
[2016-08-20] MEDS: *HR* Enoxaparin 40 MG/0.4 ML SYRINGE SQ SCH (06:19)
[2016-08-20] MEDS: Piperacillin/Tazobactam 3.375 GM in D5% in Water (Mini-Bag+) 100 ML IVPB SCH ×3 (06:24→23:13)
[2016-08-20 06:34] LABS: Basophils % 0.7 %; Eosinophils # 0.1 K/mcL (0.0-0.6); Eosinophils % 2.2 %; Hematocrit 33.5 % (35.3-44.9); Hemoglobin 11.3 g/dL (11.5-15.4); Immature Granulocytes % 0.3 % (0-4); Lymphocytes # 1.3 K/mcL (0.6-4.6); Lymphocytes % 21.5 %; Mean Corpuscular HGB Conc 33.7 g/dL (31.6-35.5); Mean Corpuscular Volume 82.9 fL (83.0-100.0); Mean Platelet Volume 12.7 fL (9.4-12.4); Monocytes # 0.6 K/mcL (0.0-1.3); Monocytes % 10.4 %; Neutrophils # 3.9 K/mcL (1.6-8.9); Platelet Count 202 K/mcL (140-400); Red Blood Count 4.04 M/mcL (3.82-4.97); Red Cell Distribution Width 19.8 % (11.5-14.5); Segmented Neutrophils % 64.9 %
[2016-08-20 06:44] LABS: Alanine Aminotransferase 931 Units/L (0-55); Albumin 2.1 g/dL (3.5-5.0); Albumin/Globulin Ratio 0.7 (1.1-2.2); Alkaline Phosphatase 273 Units/L (38-126); Aspartate Amino Transferase 1511 Units/L (5-34); BUN/Creatinine Ratio 8 (6-26); Calcium 8.1 mg/dL (8.6-10.8); Carbon Dioxide 20 mEq/L (19-29); Chloride 109 mEq/L (98-109); Globulin 3.1 g/dL (2.4-3.5); Glucose 67 mg/dL (70-99); Osmolality,Calculated 276 (280-300); Potassium 3.7 mEq/L (3.5-4.5); Sodium 135 mEq/L (136-145); Total Protein 5.2 g/dL (6.0-8.3); eGFR For African Americans > 60 (> 60); eGFR For Non-African Americans > 60 (> 60)
[2016-08-20 06:45] LABS: Bilirubin,Total 12.4 mg/dL (0.2-1.2); Blood Urea Nitrogen 5 mg/dL (7-20)
[2016-08-20] MEDS: Nicotine 21 MG PATCH.TD24 TD SCH (08:03)
[2016-08-20] MEDS: 0.9 % Sodium Chloride 1,000 ML IVC SCH ×2 (08:07→17:19)
--- NOTE | 2016-08-20 09:46 | EEG/EMG/Oth Biometrics Report ---
EEG Procedure Report Date of procedure: 08/20/16 EEG Procedure: Routine EEG Procedure Note: This is a report of a 21 channel bipolar and referential montages. The posterior dominant rhythm of 10 Hz moderate voltage alpha frequencies identified symmetrically in the posterior head regions. Rhythm attenuates symmetrically with eye opening. Hyperventilation is performed and does not not significantly alter the recording. Periods of drowsiness and stage II sleep were identified by dropout of posterior dominant rhythm and emergence of vertex activity, K complexes, and sleep spindles. Photic stimulation is performed and does not produce a driving cause. The EKG reveals normal sinus rhythm at 66 beats per minute. Impressions: This EEG recording is within normal limits. There is no evidence of epileptiform activity identified during the study. Comment: A normal EEG does not exclude the diagnosis of seizure or epilepsy. If the clinical suspicion for seizure activities, serial EEGs or perhaps a prolonged recording may increase the yield. Please correlate clinically. The documentation in the history of HPI and plan were at least partially created by [employer] voice recognition technology by Dr. Cueva. Errors in grammar, wording or other phrases may exist. If errors are found after the documentation signed, they will be addressed individually in the addendum section of this document when appropriate.
--- NOTE | 2016-08-20 09:51 | Gastroenterology Consult Note ---
<Eliana Escobar - Last Filed: 08/20/16 12:02> Date of Encounter: 08/20/16 Time of Encounter: 10:45 - Assessment and plan (1) Abdominal pain Current Visit: Yes Status: Acute Assessment and plan: Patient has had CT, US and HIDA during this inpatient stay, findings suggestion of possible chronic cholecystitis. No choledocholelithiasis noted in any of imaging. Increase/change PPI to help with complaints. (2) Elevated transaminase level Current Visit: Yes Status: Acute Assessment and plan: Grossly elevated AST initially 1228, now 1511. ALT 992 down to 931, bili 11.3 up to 12.4 and alk phos 269 steady at 273. Hx of IVDU most recently a week ago. R/O acute hepatitis. Holding on lab results. Appears she is positive for Hep B, Hep C results pending. (3) Nausea & vomiting Current Visit: Yes Status: Acute Qualifiers: Vomiting type: unspecified Vomiting Intractability: non-intractable Qualified Code(s): R11.2 - Nausea with vomiting, unspecified (4) IV drug abuse Current Visit: Yes Status: Chronic - Time Spent With Patient Total time spent is greater than 50% in coordination of care (as documented) at patient's floor/unit and/or counseling patient: less than 15 minutes GI History of Present Illness - Data of Consult Patient: new to practice Consult date: 08/20/16 Requesting Physician: Arabella Pandya MD - Consult Narrative Reason for consult: elev LFTs History of present illness: Ms. Gonzáles is a 35 year old female with a PMH significant for IVDU, prescription drug abuse, seizures, who presents with three-day history of jaundice. She states that she has been vomiting for one week. She notices that her urine is dark. She admits to periumbilical abdominal pain and pelvic pain. She has a history of IV drug use. Last use was one week ago. Patient states that she does not share needles. However, she claims that she uses her friend's mother's insulin needles for injecting heroin. Patient states that she knows a number of people with hepatitis C. She denies getting a tattoo or blood transfusion. She has been in a monogamous sexual relationship for 14 years. Patient admits to recent weakness, fatigue, 20 pound weight loss over the last 3-4 months. Patient had episode of syncope 2-3 weeks ago in which she fell in her bathroom. Her head landed on the floor. Prior that day, she had had an episode in which she climbed a flight of stairs, became very weak, and the left side of her body started shaking uncontrollably. She states that she was not using drugs at the time. She believes that she may have had a seizure. In the past month, she admits to numbness on the left scalp and dizziness. Denies headache, blurry vision, double vision, night sweats, chest pain, dyspnea , dysuria, hematuria, muscle aches, weakness or numbness in extremities. Neurology has been consulted and evaluated the patient during this inpatient stay. Patient admits dyspepsia, abdominal discomfort in the past several days, N /V started last week, BM steady every day or every other day, no black or blood in stools. Dyspepsia is not under good control currently. Per her floor nurse, she contacted lab and confirmed patient positive for Hepatitis B, C had not yet resulted. Colonoscopy: None noted EGD: None noted Past Med Surg Social Fam HX - Past Medical History Medical history: no medical history Psychiatric history: no psych history - Past Surgical History Surgical History: (and tubal ligation) - Social History Smoking Status: Current every day smoker (1ppd x 20 years) Packs per day: 1 Smokeless Tobacco Status: No Alcohol use: none Drug use: IVDU (heroin), prescription drug abuse (xanax) - Family History Mother Hx Family Cancer: Yes (cervical cancer) - Gastrointestinal NSAID use: None Anticoagulation Use: None Number of BM Per Day: 1 Gastrointestinal: Present: abdominal pain, dyspepsia, nausea, vomiting - Constitutional Constitutional: as per HPI - EENT Eyes: as per HPI Ears: Present: as per HPI Nose, mouth and throat: Present: as per HPI - Cardiovascular Cardiovascular ROS: Present: as per HPI - Respiratory Respiratory IM: Present: as per HPI - Neurological ROS Neurological GI: Present: weakness - Hematologic/Lymphatic Hematologic/Lymphatic pediatric: Present: as per HPI - Musculoskeletal Musculoskeletal ROS GI: Present: as per HPI - Integumentary Integumentary GI: Present: jaundice - Psychiatric ROS Psychiatric GI: Present: as per HPI - Endocrine Endocrine IM: Present: as per HPI - Constitutional Vitals: Temp Pulse Resp BP Pulse Ox 98.1 F 60 14 93/61 95 08/20/16 06:49 08/20/16 06:49 08/20/16 06:49 08/20/16 06:49 08/20/16 06:49 General appearance: Present: cooperative, A&O X 3, no acute distress, answers questions appropriately - Head Head exam: Present: atraumatic, normocephalic - Eye Eye exam: Present: scleral icterus - ENT ENT exam: Present: mucous membranes moist - Neck Neck exam general surgery: Present: normal inspection, trachea midline - Respiratory Respiratory exam: Present: CTAB - Cardiovascular Cardiovascular exam: Present: RRR, +S1, +S2 - GI/Abdominal GI/Abdominal exam: Present: soft, tenderness, no peritoneal signs - Rectal Rectal exam: Present: deferred - Extremities Exam Extremities exam: Present: warm - Neurological Exam Neurological exam: Present: no focal deficits - Psychiatric Psychiatric exam: Present: normal affect, normal mood - Skin Additional comments: jaundiced Results - Labs CBC & Chem 7: 08/20/16 05:23 08/20/16 05:23 Labs: Last Result ESR 15 mm/hr (0-15) 08/19/16 06:52 Calcium 8.1 mg/dL (8.6-10.8) L 08/20/16 05:23 C-Reactive Protein 7 mg/L (Less than 5) H 08/19/16 06:52 Entire Visit Hgb 11.3 g/dL (11.5-15.4) L 08/20/16 05:23 Hct 33.5 % (35.3-44.9) L 08/20/16 05:23 PT 17.1 Seconds (9.4-12.1) H 08/18/16 20:47 Total Bilirubin 12.4 mg/dL (0.2-1.2) H 08/20/16 05:23 AST 1511 Units/L (5-34) H 08/20/16 05:23 ALT 931 Units/L (0-55) H 08/20/16 05:23 Ammonia 44 mcmol/L (18-72) 08/19/16 06:52 Lipase 23 Units/L (8-78) 08/18/16 22:15 - ABG ABG results: PT/INR, D-dimer PT 17.1 Seconds (9.4-12.1) H 08/18/16 20:47 - Impressions Impressions Bile Acid Absorption NM 08/19/16 04:45 IMPRESSION: Nonvisualization of the gallbladder at 2 hours D/ / Gregory Camilo MD / Gregory Camilo MD Interpreting Provider: Gregory Camilo MD Consult Discharge Plan - Plan Referrals: NO,PCP [Primary Care Provider] - <Lilia Crowe - Last Filed: 08/20/16 14:34> Time of Encounter: 12:00 - Time Spent With Patient Total time spent is greater than 50% in coordination of care (as documented) at patient's floor/unit and/or counseling patient: GI History of Present Illness - Data of Consult Requesting Physician: Arabella Pandya MD - Consult Narrative History of present illness: Ms. Gonzáles is a 35 year old female - Constitutional Vitals: Temp Pulse Resp BP Pulse Ox 97.7 F 63 16 105/66 94 L 08/20/16 10:37 08/20/16 10:37 08/20/16 10:37 08/20/16 10:37 08/20/16 10:37 Results - Labs CBC & Chem 7: 08/20/16 05:23 08/20/16 05:23 Labs: Last Result ESR 15 mm/hr (0-15) 08/19/16 06:52 Calcium 8.1 mg/dL (8.6-10.8) L 08/20/16 05:23 C-Reactive Protein 7 mg/L (Less than 5) H 08/19/16 06:52 Entire Visit Hgb 11.3 g/dL (11.5-15.4) L 08/20/16 05:23 Hct 33.5 % (35.3-44.9) L 08/20/16 05:23 PT 17.1 Seconds (9.4-12.1) H 08/18/16 20:47 Total Bilirubin 12.4 mg/dL (0.2-1.2) H 08/20/16 05:23 AST 1511 Units/L (5-34) H 08/20/16 05:23 ALT 931 Units/L (0-55) H 08/20/16 05:23 Ammonia 44 mcmol/L (18-72) 08/19/16 06:52 Lipase 23 Units/L (8-78) 08/18/16 22:15 - ABG ABG results: PT/INR, D-dimer PT 17.1 Seconds (9.4-12.1) H 08/18/16 20:47 - Attending Attestation I examined this patient and my medical decision-making was reviewed with the LABOR/EXCAVATOR/PA/Advanced Practice Nurse/Resident Physician. I agree with the documented findings, disposition and treatment plan as described except to the extent set forth below. Pt with acute hepatitis history of IV drug abuse, hep serology is pending. LFTs are slightly better than yesterday
[2016-08-20] MEDS: Pantoprazole 40 MG VIAL IVP SCH (11:24)
--- NOTE | 2016-08-20 11:49 | Internal Med Progress Note ---
Date of Encounter: 08/20/16 Time of Encounter: 11:47 - Assessment and plan (1) Elevated transaminase level Current Visit: Yes Status: Acute Assessment and plan: History of IV drug abuse, last use of heroin last week awaiting hepatitis serologies HIDA scan reported cystic duct obstruction GI consult appreciated Positive for Hep B Awaiting Hep C Will advance diet to full liquids continue supportive care IV fluids pain management (2) Cholecystitis, chronic Current Visit: Yes Status: Acute Assessment and plan: Will continue Zosyn IV fluids No further surgical GI intervention at this time continue supportive care (3) DVT prophylaxis Current Visit: Yes Status: Acute Assessment and plan: Lovenox SQ (4) IV drug abuse Current Visit: Yes Status: Chronic Assessment and plan: 2D echo negative for vegetations, mild tricuspid regurgitation noted (5) Syncope and collapse Current Visit: Yes Status: Acute Assessment and plan: CT head negative for any acute intracranial abnormalities no syncopal episodes noted since hospitalization Neurology eval appreciated (6) Tobacco abuse Current Visit: Yes Status: Acute Assessment and plan: smoking cessation counseling provided patient not ready to quit at this time nicotine replacement therapy provided - Subjective Interval history: Patient seen and examined at bedside. Resting in bed and reports of improvement in pain compared to previous day. Patient is reported to have Hepatitis B. Patient was informed of the test results by GI and care plan was explained in detail. - Constitutional Vitals: Temp Pulse Resp BP Pulse Ox 97.7 F 63 16 105/66 94 L 08/20/16 10:37 08/20/16 10:37 08/20/16 10:37 08/20/16 10:37 08/20/16 10:37 General appearance: Present: A&O X 3 (jaundiced), no acute distress, answers questions appropriately - Head Head exam: Present: atraumatic, normocephalic - Eye Eye exam: Present: normal appearance, sclera anicteric. Absent: conjuntiva pink - Respiratory Respiratory exam: Present: CTAB. Absent: respiratory distress, wheezes - Cardiovascular Cardiovascular exam: Present: RRR, +S1, +S2 - GI/Abdominal GI/Abdominal exam: Present: normal bowel sounds, soft. Absent: distended, tenderness - Extremities Exam Extremities exam: Present: pedal edema, warm, radial pulses palpable and symetrical. Absent: calf tenderness, tenderness - Neurological Exam Neurological exam: Present: alert, oriented X3 Internal Medicine: Result - Labs CBC & Chem 7: 08/20/16 05:23 08/20/16 05:23 Labs: Short CBC 08/19/16 08/20/16 Range/Units 14:04 05:23 WBC 6.4 6.0 (4.3-11.1) K/mcL Hgb 11.8 11.3 L (11.5-15.4) g/dL Hct 34.6 L 33.5 L (35.3-44.9) % Plt Count 212 202 (140-400) K/mcL Neutrophils # 4.2 3.9 (1.6-8.9) K/mcL BMP 08/19/16 08/20/16 14:04 05:23 Sodium 138 135 L Potassium 4.3 3.7 Chloride 112 H 109 Carbon Dioxide 20 20 BUN 6 L 5 L Creatinine 0.67 0.66 Glucose 72 67 L Calcium 8.0 L 8.1 L Liver Function 08/19/16 08/20/16 Range/Units 14:04 05:23 Total Bilirubin 12.6 H 12.4 H (0.2-1.2) mg/dL AST 1584 H 1511 H (5-34) Units/L ALT 1057 H 931 H (0-55) Units/L Alkaline Phosphatase 281 H 273 H (38-126) Units/L Albumin 2.4 L 2.1 L (3.5-5.0) g/dL - ABG Interpretation ABG results: PT/INR, D-dimer PT 17.1 Seconds (9.4-12.1) H 08/18/16 20:47 - Impressions Impressions Bile Acid Absorption NM 08/19/16 04:45 IMPRESSION: Nonvisualization of the gallbladder at 2 hours D/ / Gregory Camilo MD / Gregory Camilo MD Interpreting Provider: Gregory Camilo MD Consult Discharge Plan - Plan Referrals: NO,PCP [Primary Care Provider] -
[2016-08-20] MEDS: Ibuprofen 400 MG TABLET PO PRN ×2 (14:52→23:13)
[2016-08-20 22:04] LABS: Magnesium 1.4 mg/dL (1.6-2.6); Phosphorous 3.2 mg/dL (2.3-4.7)
[2016-08-20 22:38] LABS: Hepatitis B Surface Antigen Reactive (Nonreactive)
[2016-08-21 00:49] LABS: Hepatitis B Core IgM Reactive (Nonreactive)
[2016-08-21] MEDS: *HR* Morphine 2 MG/ML SYRINGE IVP PRN ×4 (03:27→18:34)
[2016-08-21] MEDS: 0.9 % Sodium Chloride 1,000 ML IVC SCH ×2 (04:07→17:28)
[2016-08-21] MEDS: Piperacillin/Tazobactam 3.375 GM in D5% in Water (Mini-Bag+) 100 ML IVPB SCH ×2 (05:52→15:14)
[2016-08-21] MEDS: Ibuprofen 400 MG TABLET PO PRN (05:54)
[2016-08-21] MEDS: *HR* Enoxaparin 40 MG/0.4 ML SYRINGE SQ SCH (05:54)
[2016-08-21 06:03] LABS: Basophils % 0.5 %; Eosinophils # 0.1 K/mcL (0.0-0.6); Eosinophils % 1.4 %; Hematocrit 31.7 % (35.3-44.9); Hemoglobin 10.9 g/dL (11.5-15.4); Immature Granulocytes % 0.9 % (0-4); Lymphocytes # 1.2 K/mcL (0.6-4.6); Lymphocytes % 28.4 %; Mean Corpuscular HGB Conc 34.4 g/dL (31.6-35.5); Mean Corpuscular Hemoglobin 28.5 pg (28.0-33.3); Mean Platelet Volume 12.7 fL (9.4-12.4); Monocytes # 0.5 K/mcL (0.0-1.3); Monocytes % 10.4 %; Neutrophils # 2.5 K/mcL (1.6-8.9); Platelet Count 192 K/mcL (140-400); Red Blood Count 3.82 M/mcL (3.82-4.97); Red Cell Distribution Width 20.2 % (11.5-14.5); Segmented Neutrophils % 58.4 %
[2016-08-21 06:34] LABS: Alanine Aminotransferase 910 Units/L (0-55); Albumin 2.1 g/dL (3.5-5.0); Albumin/Globulin Ratio 0.6 (1.1-2.2); Alkaline Phosphatase 241 Units/L (38-126); BUN/Creatinine Ratio 8 (6-26); Bilirubin,Total 13.4 mg/dL (0.2-1.2); Carbon Dioxide 17 mEq/L (19-29); Chloride 113 mEq/L (98-109); Globulin 3.3 g/dL (2.4-3.5); Glucose 106 mg/dL (70-99); Osmolality,Calculated 280 (280-300); Total Protein 5.4 g/dL (6.0-8.3); eGFR For African Americans > 60 (> 60); eGFR For Non-African Americans > 60 (> 60)
[2016-08-21 06:39] LABS: Aspartate Amino Transferase 1404 Units/L (5-34); Blood Urea Nitrogen 5 mg/dL (7-20); Potassium 4.8 mEq/L (3.5-4.5)
[2016-08-21 06:40] LABS: Sodium 136 mEq/L (136-145)
[2016-08-21] MEDS: *HR* OxyCODONE Immed Rel 5 MG TABLET PO PRN (08:06)
[2016-08-21] MEDS: Ondansetron 4 MG/2 ML VIAL IVP PRN (08:06)
[2016-08-21] MEDS: Pantoprazole 40 MG VIAL IVP SCH (08:11)
[2016-08-21] MEDS: Nicotine 21 MG PATCH.TD24 TD SCH (08:12)
--- NOTE | 2016-08-21 09:40 | Gastroenterology Progress Note ---
<Eliana Escobar - Last Filed: 08/21/16 11:25> Date of Encounter: 08/21/16 Time of Encounter: 10:15 - Assessment and plan (1) Abdominal pain Current Visit: Yes Status: Acute Assessment and plan: Patient has had CT, US and HIDA during this inpatient stay, findings suggestion of possible chronic cholecystitis. No choledocholelithiasis noted in any of imaging, MRCP ordered to confirm. Patient bilirubin continues to rise. Increase/ change PPI to help with complaints. (2) Elevated transaminase level Current Visit: Yes Status: Acute Assessment and plan: AST, alk phos and ALT starting to trend slightly lower, not a substantial change from yesterday. Bilirubin continues to rise. Patient positive for Hep B infection, r/o Hep C infection and choledocholelithiasis. MRCP today. (3) Nausea & vomiting Current Visit: Yes Status: Acute Qualifiers: Vomiting type: unspecified Vomiting Intractability: non-intractable Qualified Code(s): R11.2 - Nausea with vomiting, unspecified (4) IV drug abuse Current Visit: Yes Status: Chronic (5) Hepatitis B Current Visit: Yes Status: Acute Qualifiers: Viral hepatitis chronicity: acute Hepatic coma status: without hepatic coma Hepatitis delta agent presence: without delta-agent Qualified Code(s): B16.9 - Acute hepatitis B without delta-agent and without hepatic coma - Time Spent With Patient Total time spent is greater than 50% in coordination of care (as documented) at patient's floor/unit and/or counseling patient: - Subjective Interval history: Patient positive for active Hep B infection, awaiting Hep C labs. LFTs continue to remain very elevated. MRCP to evaluate. Patient resting comfortably, no appetite and no food ingestion today. She still has very tender RUQ abdomen. Some nausea. - Constitutional Vitals: Temp Pulse Resp BP Pulse Ox 97.7 F 57 18 123/78 99 08/21/16 07:24 08/21/16 07:24 08/21/16 07:24 08/21/16 07:24 08/21/16 07:24 General appearance: Present: cooperative, A&O X 3, no acute distress, answers questions appropriately - Head Head exam: Present: atraumatic, normocephalic - Eye Eye exam: Present: scleral icterus - ENT ENT exam: Present: mucous membranes moist - Neck Neck exam general surgery: Present: normal inspection, trachea midline - Respiratory Respiratory exam: Present: CTAB - Cardiovascular Cardiovascular exam: Present: RRR, +S1, +S2 - GI/Abdominal GI/Abdominal exam: Present: soft, tenderness, no peritoneal signs - Rectal Rectal exam: Present: deferred - Extremities Exam Extremities exam: Present: warm - Neurological Exam Neurological exam: Present: no focal deficits - Psychiatric Psychiatric exam: Present: normal affect, normal mood - Skin Additional comments: jaundice Results - Labs CBC & Chem 7: 08/21/16 05:37 08/21/16 05:37 Labs: Last Result ESR 15 mm/hr (0-15) 08/19/16 06:52 Calcium 8.0 mg/dL (8.6-10.8) L 08/21/16 05:37 C-Reactive Protein 7 mg/L (Less than 5) H 08/19/16 06:52 Entire Visit Hgb 10.9 g/dL (11.5-15.4) L 08/21/16 05:37 Hct 31.7 % (35.3-44.9) L 08/21/16 05:37 PT 17.1 Seconds (9.4-12.1) H 08/18/16 20:47 Total Bilirubin 13.4 mg/dL (0.2-1.2) H 08/21/16 05:37 AST 1404 Units/L (5-34) H 08/21/16 05:37 ALT 910 Units/L (0-55) H 08/21/16 05:37 Ammonia 44 mcmol/L (18-72) 08/19/16 06:52 Lipase 23 Units/L (8-78) 08/18/16 22:15 - ABG ABG results: PT/INR, D-dimer PT 17.1 Seconds (9.4-12.1) H 08/18/16 20:47 Consult Discharge Plan - Plan Referrals: NO,PCP [Primary Care Provider] - <Lilia Crowe - Last Filed: 08/21/16 17:52> Time of Encounter: 16:00 - Time Spent With Patient Total time spent is greater than 50% in coordination of care (as documented) at patient's floor/unit and/or counseling patient: - Constitutional Vitals: Temp Pulse Resp BP Pulse Ox 97.6 F 50 17 107/67 98 08/21/16 16:15 08/21/16 16:15 08/21/16 16:15 08/21/16 16:15 08/21/16 16:15 Results - Labs CBC & Chem 7: 08/21/16 05:37 08/21/16 05:37 Labs: Last Result ESR 15 mm/hr (0-15) 08/19/16 06:52 Calcium 8.0 mg/dL (8.6-10.8) L 08/21/16 05:37 C-Reactive Protein 7 mg/L (Less than 5) H 08/19/16 06:52 Entire Visit Hgb 10.9 g/dL (11.5-15.4) L 08/21/16 05:37 Hct 31.7 % (35.3-44.9) L 08/21/16 05:37 PT 17.1 Seconds (9.4-12.1) H 08/18/16 20:47 Total Bilirubin 13.4 mg/dL (0.2-1.2) H 08/21/16 05:37 AST 1404 Units/L (5-34) H 08/21/16 05:37 ALT 910 Units/L (0-55) H 08/21/16 05:37 Ammonia 44 mcmol/L (18-72) 08/19/16 06:52 Lipase 23 Units/L (8-78) 08/18/16 22:15 - ABG ABG results: PT/INR, D-dimer PT 17.1 Seconds (9.4-12.1) H 08/18/16 20:47 - Impressions Impressions Abdomen MRI 08/21/16 09:42 IMPRESSION: 1. Persistent diffuse gallbladder wall thickening/edema with mild pericholecystic stranding. Given nonvisualization of the gallbladder on recent HIDA, findings remain suspicious for acute cholecystitis especially in the appropriate clinical setting. 2. No biliary dilation. The common bile duct is difficult to visualize due to periportal edema but no discrete filling defect is otherwise identified. 3. Nonspecific periportal edema is again noted. 4. Anasarca with increasing ascites, pleural effusion and subcutaneous edema. 5. Mild periportal adenopathy, likely reactive. The findings were sent to the Radiology Results Communication Center at 1:37 pm on 08/21/2016to be communicated to a licensed caregiver. D/ / 08/21/2016 13:43:58 Karen Mariee MD / Bella Snider Interpreting Provider: Karen Mariee MD - Attending Attestation I examined this patient and my medical decision-making was reviewed with the ALMOND GRINDER/PA/Advanced Practice Nurse/Resident Physician. I agree with the documented findings, disposition and treatment plan as described except to the extent set forth below. If LFTS cont to rise due to acute hep B then tenofovir daily for 3 months
--- NOTE | 2016-08-21 10:30 | Internal Med Progress Note ---
Date of Encounter: 08/21/16 Time of Encounter: 10:30 - Constitutional Vitals: Temp Pulse Resp BP Pulse Ox 97.7 F 57 18 123/78 99 08/21/16 07:24 08/21/16 07:24 08/21/16 07:24 08/21/16 07:24 08/21/16 07:24 General appearance: Present: A&O X 3 (jaundiced), no acute distress, answers questions appropriately Internal Medicine: Result - Labs CBC & Chem 7: 08/21/16 05:37 08/21/16 05:37 Labs: Short CBC 08/21/16 Range/Units 05:37 WBC 4.3 (4.3-11.1) K/mcL Hgb 10.9 L (11.5-15.4) g/dL Hct 31.7 L (35.3-44.9) % Plt Count 192 (140-400) K/mcL Neutrophils # 2.5 (1.6-8.9) K/mcL BMP 08/21/16 05:37 Sodium 136 Potassium 4.8 H D Chloride 113 H Carbon Dioxide 17 L BUN 5 L Creatinine 0.61 Glucose 106 H Calcium 8.0 L Liver Function 08/21/16 Range/Units 05:37 Total Bilirubin 13.4 H (0.2-1.2) mg/dL AST 1404 H (5-34) Units/L ALT 910 H (0-55) Units/L Alkaline Phosphatase 241 H (38-126) Units/L Albumin 2.1 L (3.5-5.0) g/dL - ABG Interpretation ABG results: PT/INR, D-dimer PT 17.1 Seconds (9.4-12.1) H 08/18/16 20:47 Consult Discharge Plan - Plan Referrals: NO,PCP [Primary Care Provider] -
--- NOTE | 2016-08-21 15:55 | Internal Med Progress Note ---
<J Carlos Wilcox - Last Filed: 08/21/16 17:34> Time of Encounter: 15:50 - Assessment and plan (1) Transaminitis Current Visit: Yes Status: Acute Assessment and plan: Patient with elevated transaminaes. LFTS are in the 1000s I calculate the R factor to be 8.5 which would suggest a hepatocellular rather than a cholestatic picture. Per imaging reports: CT scan of the abdomen from 08/18/16 shows severe mucosal thickening and contraction of the gallbladder. with mild periportal edema. US of the gallbladder from 08/18/16 shows gallbladder wall and pericholycystic fluid. HIDA scan from 08/19/16 shows non visualization of the gallbladder. MRCP from 08/21/16 reveals persistant thickening of the gallbladder wall withmild pericholecystic stranding. No biliary dilation. The common bile duct was difficult to visualize do to periportal edema without discreet filling defect. non specific periportal edema was noted again, anasarca with increasing ascites, pleural effusion and subcutaneous edema. There is mild periportal adenopathy that is likely reactive. given the clinical history and presentation I think likely the thickening and inflamatory appearence of the gallbladder is from liver inflamation. Also given the history of IV drug use followed by flu like symptoms, lower extremity rash and then RUQ pain and jaundince I think that this is more of an acute hepatitis patter. Additionally the R factor was > 5 which would suggest hepatocellular pattern. MRCP did not fully visualice CBd however. She is afebrile and has a normal WBC. I think this is less likely to be acute cholecystitis. However we may consider surgical consultation for their input. I will discuss with my attending. Appreciate GI's input and recommendations. Day3 of Zosyn. she as had neither leukocytosis or fever. I doubt ascending cholangitis at this time. May consider discontinuing when clinically improved. (2) Hepatitis B Current Visit: Yes Status: Acute Assessment and plan: Likely from IV drug abuse Her INR is 1.6 and LFTs are trending down. I dont see any indications for antiral therapy at this time. she hould be followed to see if she develops chronic hepatitis B. Hepatitis profile was ordered and pending. we will check for other concurrent hepatitis infections as well. (3) Jaundice Current Visit: Yes Status: Acute Assessment and plan: likely secondary to hepatitis Denies pruritis at this time (4) IV drug user Current Visit: Yes Status: Acute Assessment and plan: as stated above. Blood cultures show no growth to date. HIV negative we will provide her with resources for drug addiction upon her discharge. (5) Anemia Current Visit: Yes Status: Acute Assessment and plan: normocytic. Mild trend down However she has large RDW. This could indicate an early deficiency in iron B12 or folate or a combination. check hematinics. (6) Coagulopathy Current Visit: Yes Status: Acute Assessment and plan: INR 1.6 Likely secondary to liver injury continue to follow. (7) Hypoalbuminemia Current Visit: Yes Status: Acute Assessment and plan: likley a combination of liver injury and acute illness. continue to follow (8) Hyperkalemia Current Visit: Yes Status: Acute Assessment and plan: mild possibly from a traumatic blood draw. repeat labs in AM (9) Metabolic acidosis Current Visit: Yes Status: Acute Assessment and plan: Non anion Gap metabolic acidosis. denies N/V/D at this time. Most likely secondary to IV fluids. Change NS to LR (10) DVT prophylaxis Current Visit: Yes Status: Acute Assessment and plan: SQ lovenox - Subjective Interval history: Mrs. Gonzáles is a 35 y.o. female who was admitted on 08/19/16 for jaundice and hepatitis. Today she states that her symptoms started approximately 2 weeks ago with malaise and diffuse body aches. She states she felt like she had the flu. She also developed a rash on her lower extremities that has since resolved. She states that seh later developed RUQ pain and jaundice. She denies any fever. She denies ingeting Tylenol or meidcations containing tylenol ( specifically I questioned her about lotab, vicoden, percocet and cough syrups). she denies any herbal suplements or recent travel. she is not exposed to preschool aged children or toddlers. She has had no recent travel. She denies a history of autoimmune disorders in herself or in her family members. she Has had no recent foriegn travel. She dose admit to IV drug abuse.She states she last used approximately 2 weeks ago around the time of the onset of her symptoms. today she states that she is feeling some better. she states that her pain is well controlled. she states that she had a normal bowel movement yesterday and that she is eating and drinking appropriately. She denies any further complaints or concerns at this time. - Constitutional Vitals: Temp Pulse Resp BP Pulse Ox 97.8 F 65 16 106/65 94 L 08/21/16 10:32 08/21/16 10:32 08/21/16 10:32 08/21/16 10:32 08/21/16 10:32 General appearance: Present: A&O X 3 (jaundiced), no acute distress, answers questions appropriately - Head Head exam: Present: atraumatic, normal inspection, normocephalic - Eye Eye exam: Present: PERRL, scleral icterus, conjuntiva pink Pupils: Present: PERRL - ENT ENT exam: Present: mucous membranes moist - Neck Neck exam general surgery: Present: supple, trachea midline. Absent: lymphadenopathy - Respiratory Respiratory exam: Present: CTAB. Absent: accessory muscle use, rales, rhonchi, wheezes - Cardiovascular Cardiovascular exam: Present: RRR, +S1, +S2. Absent: diastolic murmur, gallop, rubs, systolic murmur - GI/Abdominal GI/Abdominal exam: Present: hepatomegaly (mild), normal bowel sounds, soft, tenderness (RUQ), no peritoneal signs. Absent: distended, firm, guarding - Extremities Exam Extremities exam: Present: warm, radial pulses palpable and symetrical. Absent : calf tenderness, cyanotic, pedal edema - Skin Skin exam: Present: dry, intact. Absent: petechiae, rash, urticaria Additional comments: jaundiced Internal Medicine: Result - Labs CBC & Chem 7: 08/21/16 05:37 08/21/16 05:37 Labs: Short CBC 08/21/16 Range/Units 05:37 WBC 4.3 (4.3-11.1) K/mcL Hgb 10.9 L (11.5-15.4) g/dL Hct 31.7 L (35.3-44.9) % Plt Count 192 (140-400) K/mcL Neutrophils # 2.5 (1.6-8.9) K/mcL BMP 08/21/16 05:37 Sodium 136 Potassium 4.8 H D Chloride 113 H Carbon Dioxide 17 L BUN 5 L Creatinine 0.61 Glucose 106 H Calcium 8.0 L Liver Function 08/21/16 Range/Units 05:37 Total Bilirubin 13.4 H (0.2-1.2) mg/dL AST 1404 H (5-34) Units/L ALT 910 H (0-55) Units/L Alkaline Phosphatase 241 H (38-126) Units/L Albumin 2.1 L (3.5-5.0) g/dL - ABG Interpretation ABG results: PT/INR, D-dimer PT 17.1 Seconds (9.4-12.1) H 08/18/16 20:47 - Impressions Impressions Abdomen MRI 08/21/16 09:42 IMPRESSION: 1. Persistent diffuse gallbladder wall thickening/edema with mild pericholecystic stranding. Given nonvisualization of the gallbladder on recent HIDA, findings remain suspicious for acute cholecystitis especially in the appropriate clinical setting. 2. No biliary dilation. The common bile duct is difficult to visualize due to periportal edema but no discrete filling defect is otherwise identified. 3. Nonspecific periportal edema is again noted. 4. Anasarca with increasing ascites, pleural effusion and subcutaneous edema. 5. Mild periportal adenopathy, likely reactive. The findings were sent to the Radiology Results Communication Center at 1:37 pm on 08/21/2016to be communicated to a licensed caregiver. D/ / 08/21/2016 13:43:58 Karen Mariee MD / Bella Snider Interpreting Provider: Karen Mariee MD Consult Discharge Plan - Plan Referrals: NO,PCP [Primary Care Provider] - <Anthony Zavala H - Last Filed: 08/21/16 17:36> Date of Encounter: 08/21/16 - Constitutional Vitals: Temp Pulse Resp BP Pulse Ox 97.8 F 65 16 106/65 94 L 08/21/16 10:32 08/21/16 10:32 08/21/16 10:32 08/21/16 10:32 08/21/16 10:32 Internal Medicine: Result - Labs CBC & Chem 7: 08/21/16 05:37 08/21/16 05:37 Labs: Short CBC 08/21/16 Range/Units 05:37 WBC 4.3 (4.3-11.1) K/mcL Hgb 10.9 L (11.5-15.4) g/dL Hct 31.7 L (35.3-44.9) % Plt Count 192 (140-400) K/mcL Neutrophils # 2.5 (1.6-8.9) K/mcL BMP 08/21/16 05:37 Sodium 136 Potassium 4.8 H D Chloride 113 H Carbon Dioxide 17 L BUN 5 L Creatinine 0.61 Glucose 106 H Calcium 8.0 L Liver Function 08/21/16 Range/Units 05:37 Total Bilirubin 13.4 H (0.2-1.2) mg/dL AST 1404 H (5-34) Units/L ALT 910 H (0-55) Units/L Alkaline Phosphatase 241 H (38-126) Units/L Albumin 2.1 L (3.5-5.0) g/dL - ABG Interpretation ABG results: PT/INR, D-dimer PT 17.1 Seconds (9.4-12.1) H 08/18/16 20:47 - Impressions Impressions Abdomen MRI 08/21/16 09:42 IMPRESSION: 1. Persistent diffuse gallbladder wall thickening/edema with mild pericholecystic stranding. Given nonvisualization of the gallbladder on recent HIDA, findings remain suspicious for acute cholecystitis especially in the appropriate clinical setting. 2. No biliary dilation. The common bile duct is difficult to visualize due to periportal edema but no discrete filling defect is otherwise identified. 3. Nonspecific periportal edema is again noted. 4. Anasarca with increasing ascites, pleural effusion and subcutaneous edema. 5. Mild periportal adenopathy, likely reactive. The findings were sent to the Radiology Results Communication Center at 1:37 pm on 08/21/2016to be communicated to a licensed caregiver. D/ / 08/21/2016 13:43:58 Karen Mariee MD / Bella Snider Interpreting Provider: Karen Mariee MD - Attending Attestation acute hep B hepatitis check Hep C , EBV CMV monitor LFTs. GI recommendations appreciated no hx of ETOH I examined this patient and my medical decision-making was reviewed with the WELDING MACHINE OPERATOR HELPER GAS/PA/Advanced Practice Nurse/Resident Physician. I agree with the documented findings, disposition and treatment plan as described except to the extent set forth below.
[2016-08-22] MEDS: *HR* Morphine 2 MG/ML SYRINGE IVP PRN ×5 (00:02→21:23)
[2016-08-22] MEDS: Ondansetron 4 MG/2 ML VIAL IVP PRN ×2 (00:07→20:25)
[2016-08-22] MEDS: *HR* Enoxaparin 40 MG/0.4 ML SYRINGE SQ SCH (05:34)
[2016-08-22 06:27] LABS: Basophils % 0.2 %; Eosinophils # 0.1 K/mcL (0.0-0.6); Eosinophils % 0.9 %; Hematocrit 35.3 % (35.3-44.9); Hemoglobin 12.2 g/dL (11.5-15.4); INR 1.6; Immature Granulocytes % 0.4 % (0-4); Lymphocytes # 1.5 K/mcL (0.6-4.6); Lymphocytes % 17.3 %; Mean Corpuscular HGB Conc 34.6 g/dL (31.6-35.5); Mean Corpuscular Hemoglobin 28.7 pg (28.0-33.3); Mean Corpuscular Volume 83.1 fL (83.0-100.0); Mean Platelet Volume 12.6 fL (9.4-12.4); Monocytes # 0.6 K/mcL (0.0-1.3); Monocytes % 6.9 %; Platelet Count 216 K/mcL (140-400); Prothrombin Time 17.6 Seconds (9.4-12.1); Red Blood Count 4.25 M/mcL (3.82-4.97); Red Cell Distribution Width 21.1 % (11.5-14.5); Segmented Neutrophils % 74.3 %
[2016-08-22 06:38] LABS: % Iron Saturation 51 % (15-50); Alanine Aminotransferase 921 Units/L (0-55); Albumin 2.1 g/dL (3.5-5.0); Albumin/Globulin Ratio 0.7 (1.1-2.2); Alkaline Phosphatase 277 Units/L (38-126); Aspartate Amino Transferase 1499 Units/L (5-34); BUN/Creatinine Ratio 8 (6-26); Bilirubin,Direct 10.9 mg/dL (0.0-0.5); Bilirubin,Total 14.7 mg/dL (0.2-1.2); Calcium 8.8 mg/dL (8.6-10.8); Carbon Dioxide 22 mEq/L (19-29); Chloride 110 mEq/L (98-109); Globulin 3.1 g/dL (2.4-3.5); Glucose 74 mg/dL (70-99); Iron 143 mcg/dL (50-170); Magnesium 1.4 mg/dL (1.6-2.6); Osmolality,Calculated 284 (280-300); Potassium 3.9 mEq/L (3.5-4.5); Sodium 139 mEq/L (136-145); Total Protein 5.2 g/dL (6.0-8.3); Transferrin 200 mg/dL (180-382); eGFR For African Americans > 60 (> 60); eGFR For Non-African Americans > 60 (> 60)
[2016-08-22 06:44] LABS: Blood Urea Nitrogen 5 mg/dL (7-20); Neutrophils # 6.2 K/mcL (1.6-8.9)
[2016-08-22 07:05] LABS: Vitamin B12 > 2000 pg/mL (213-816)
[2016-08-22] MEDS: Nicotine 21 MG PATCH.TD24 TD SCH (08:05)
[2016-08-22] MEDS: Pantoprazole 40 MG VIAL IVP SCH (08:05)
[2016-08-22] MEDS: Magnesium Oxide 400 MG TABLET PO SCH ×2 (08:05→20:25)
--- NOTE | 2016-08-22 09:53 | Internal Med Progress Note ---
<Dre Archer - Last Filed: 08/22/16 10:29> Date of Encounter: 08/22/16 Time of Encounter: 09:51 - Assessment and plan (1) Transaminitis Current Visit: Yes Status: Acute Assessment and plan: 08/22/16 LFTs remain elevated MRCP (08/21/16): Diffuse gallbladder wall thickening/edema with mild pericholecystic stranding. No biliary dilation. Nonspecific periportal edema. Anasarca with increasing ascites Positive for hepatitis B Hepatitis C labs pending Afebrile wBCs = 8.4 08/21/16 Patient with elevated transaminaes. LFTS are in the 1000s I calculate the R factor to be 8.5 which would suggest a hepatocellular rather than a cholestatic picture. Per imaging reports: CT scan of the abdomen from 08/18/16 shows severe mucosal thickening and contraction of the gallbladder. with mild periportal edema. US of the gallbladder from 08/18/16 shows gallbladder wall and pericholycystic fluid. HIDA scan from 08/19/16 shows non visualization of the gallbladder. MRCP from 08/21/16 reveals persistant thickening of the gallbladder wall withmild pericholecystic stranding. No biliary dilation. The common bile duct was difficult to visualize do to periportal edema without discreet filling defect. non specific periportal edema was noted again, anasarca with increasing ascites, pleural effusion and subcutaneous edema. There is mild periportal adenopathy that is likely reactive. given the clinical history and presentation I think likely the thickening and inflamatory appearence of the gallbladder is from liver inflamation. Also given the history of IV drug use followed by flu like symptoms, lower extremity rash and then RUQ pain and jaundince I think that this is more of an acute hepatitis patter. Additionally the R factor was > 5 which would suggest hepatocellular pattern. MRCP did not fully visualice CBd however. She is afebrile and has a normal WBC. I think this is less likely to be acute cholecystitis. However we may consider surgical consultation for their input. I will discuss with my attending. Appreciate GI's input and recommendations. Day3 of Zosyn. she as had neither leukocytosis or fever. I doubt ascending cholangitis at this time. May consider discontinuing when clinically improved. (2) Hepatitis B Current Visit: Yes Status: Acute Assessment and plan: 2/15/17 Further hepatitis studies pending 08/21/16 Likely from IV drug abuse Her INR is 1.6 and LFTs are trending down. I dont see any indications for antiral therapy at this time. she hould be followed to see if she develops chronic hepatitis B. Hepatitis profile was ordered and pending. we will check for other concurrent hepatitis infections as well. Qualifiers: Viral hepatitis chronicity: acute Hepatic coma status: without hepatic coma Hepatitis delta agent presence: without delta-agent Qualified Code(s): B16.9 - Acute hepatitis B without delta-agent and without hepatic coma (3) Jaundice Current Visit: Yes Status: Acute Assessment and plan: 08/21/16 likely secondary to hepatitis Denies pruritis at this time (4) IV drug user Current Visit: Yes Status: Acute Assessment and plan: 08/22/16 No growth on preliminary blood cultures 08/21/16 as stated above. Blood cultures show no growth to date. HIV negative we will provide her with resources for drug addiction upon her discharge. (5) Anemia Current Visit: Yes Status: Acute Assessment and plan: 08/22/16 Hgb increased to 12.2 and Hematocrit to 35.3 B12 was high 08/21/16 normocytic. Mild trend down However she has large RDW. This could indicate an early deficiency in iron B12 or folate or a combination. check hematinics. (6) Coagulopathy Current Visit: Yes Status: Acute Assessment and plan: 06/20/17 INR 1.6 Likely secondary to liver injury continue to follow. (7) Hypoalbuminemia Current Visit: Yes Status: Acute Assessment and plan: 08/21/16 likley a combination of liver injury and acute illness. continue to follow (8) Hyperkalemia Current Visit: Yes Status: Acute Assessment and plan: 08/22/16 K + normal this morning at 139 08/21/16 mild possibly from a traumatic blood draw. repeat labs in AM (9) Metabolic acidosis Current Visit: Yes Status: Acute Assessment and plan: 08/22/16 Non-anion gap metabolic acidosis persists 08/21/16 Non anion Gap metabolic acidosis. denies N/V/D at this time. Most likely secondary to IV fluids. Change NS to LR (10) DVT prophylaxis Current Visit: Yes Status: Acute Assessment and plan: Lovenox SQ - Subjective Interval history: Patient seen and examined. She was lying in bed in no apparent distress. She states her stomach pain has not changed relative to yesterday but is much improved from when she presented to the ER. No new complaints - Constitutional Vitals: Temp Pulse Resp BP Pulse Ox 98.5 F 55 16 93/59 96 08/22/16 07:18 08/22/16 07:18 08/22/16 07:18 08/22/16 07:18 08/22/16 07:18 General appearance: Present: A&O X 3 (jaundiced), no acute distress, answers questions appropriately - Head Head exam: Present: atraumatic, normocephalic - Eye Eye exam: Present: PERRL, conjuntiva pink, sclera anicteric Pupils: Present: PERRL - Neck Neck exam general surgery: Present: supple, trachea midline. Absent: lymphadenopathy - Respiratory Respiratory exam: Present: CTAB. Absent: accessory muscle use, rales, rhonchi, wheezes - Cardiovascular Cardiovascular exam: Present: RRR, +S1, +S2. Absent: diastolic murmur, gallop, rubs, systolic murmur - GI/Abdominal GI/Abdominal exam: Present: hepatomegaly, normal bowel sounds, soft, tenderness , no peritoneal signs. Absent: distended Additional comments: RUQ tenderness to palpation - Extremities Exam Extremities exam: Present: warm, radial pulses palpable and symetrical. Absent : calf tenderness, cyanotic, pedal edema - Neurological Exam Neurological exam: Present: CN II-XII intact, oriented X3, no focal deficits. Absent: pronater drift, facial droop, speech deficit - Skin Skin exam: Present: dry, intact Internal Medicine: Result - Labs CBC & Chem 7: 08/22/16 05:50 08/22/16 05:50 Labs: Short CBC 08/22/16 Range/Units 05:50 WBC 8.4 D (4.3-11.1) K/mcL Hgb 12.2 (11.5-15.4) g/dL Hct 35.3 (35.3-44.9) % Plt Count 216 (140-400) K/mcL Neutrophils # 6.2 (1.6-8.9) K/mcL BMP 08/22/16 05:50 Sodium 139 Potassium 3.9 Chloride 110 H Carbon Dioxide 22 BUN 5 L Creatinine 0.61 Glucose 74 Calcium 8.8 Liver Function 08/22/16 Range/Units 05:50 Total Bilirubin 14.7 H (0.2-1.2) mg/dL Direct Bilirubin 10.9 H (0.0-0.5) mg/dL AST 1499 H (5-34) Units/L ALT 921 H (0-55) Units/L Alkaline Phosphatase 277 H (38-126) Units/L Albumin 2.1 L (3.5-5.0) g/dL - ABG Interpretation ABG results: PT/INR, D-dimer PT 17.6 Seconds (9.4-12.1) H 08/22/16 05:50 - Impressions Impressions Abdomen MRI 08/21/16 09:42 IMPRESSION: 1. Persistent diffuse gallbladder wall thickening/edema with mild pericholecystic stranding. Given nonvisualization of the gallbladder on recent HIDA, findings remain suspicious for acute cholecystitis especially in the appropriate clinical setting. 2. No biliary dilation. The common bile duct is difficult to visualize due to periportal edema but no discrete filling defect is otherwise identified. 3. Nonspecific periportal edema is again noted. 4. Anasarca with increasing ascites, pleural effusion and subcutaneous edema. 5. Mild periportal adenopathy, likely reactive. The findings were sent to the Radiology Results Communication Center at 1:37 pm on 08/21/2016to be communicated to a licensed caregiver. D/ / 08/21/2016 13:43:58 Karen Mariee MD / Bella Snider Interpreting Provider: Karen Mariee MD Consult Discharge Plan - Plan Referrals: NO,PCP [Primary Care Provider] - <Anthony Zavala H - Last Filed: 08/22/16 10:41> - Constitutional Vitals: Temp Pulse Resp BP Pulse Ox 98.5 F 55 16 93/59 96 08/22/16 07:18 08/22/16 07:18 08/22/16 07:18 08/22/16 07:18 08/22/16 07:18 Exam: very icteric Internal Medicine: Result - Labs CBC & Chem 7: 08/22/16 05:50 08/22/16 05:50 Labs: Short CBC 08/22/16 Range/Units 05:50 WBC 8.4 D (4.3-11.1) K/mcL Hgb 12.2 (11.5-15.4) g/dL Hct 35.3 (35.3-44.9) % Plt Count 216 (140-400) K/mcL Neutrophils # 6.2 (1.6-8.9) K/mcL BMP 08/22/16 05:50 Sodium 139 Potassium 3.9 Chloride 110 H Carbon Dioxide 22 BUN 5 L Creatinine 0.61 Glucose 74 Calcium 8.8 Liver Function 08/22/16 Range/Units 05:50 Total Bilirubin 14.7 H (0.2-1.2) mg/dL Direct Bilirubin 10.9 H (0.0-0.5) mg/dL AST 1499 H (5-34) Units/L ALT 921 H (0-55) Units/L Alkaline Phosphatase 277 H (38-126) Units/L Albumin 2.1 L (3.5-5.0) g/dL - ABG Interpretation ABG results: PT/INR, D-dimer PT 17.6 Seconds (9.4-12.1) H 08/22/16 05:50 - Impressions Impressions Abdomen MRI 08/21/16 09:42 IMPRESSION: 1. Persistent diffuse gallbladder wall thickening/edema with mild pericholecystic stranding. Given nonvisualization of the gallbladder on recent HIDA, findings remain suspicious for acute cholecystitis especially in the appropriate clinical setting. 2. No biliary dilation. The common bile duct is difficult to visualize due to periportal edema but no discrete filling defect is otherwise identified. 3. Nonspecific periportal edema is again noted. 4. Anasarca with increasing ascites, pleural effusion and subcutaneous edema. 5. Mild periportal adenopathy, likely reactive. The findings were sent to the Radiology Results Communication Center at 1:37 pm on 08/21/2016to be communicated to a licensed caregiver. D/ / 08/21/2016 13:43:58 Karen Mariee MD / Bella Snider Interpreting Provider: Karen Mariee MD - Attending Attestation acute hepatitis B , bilirubin total getting worse 14.7, direct 10.9 awaiting labwork for Hep C and other viruses consider transferring to [place] if not improving I examined this patient and my medical decision-making was reviewed with the CLOTHING PATTERNMAKER/PA/Advanced Practice Nurse/Resident Physician. I agree with the documented findings, disposition and treatment plan as described except to the extent set forth below.
[2016-08-22] MEDS: *HR* OxyCODONE Immed Rel 5 MG TABLET PO PRN ×2 (11:40→20:25)
[2016-08-22] MEDS: Ibuprofen 400 MG TABLET PO PRN (11:40)
--- NOTE | 2016-08-22 11:58 | Discharge Summary ---
<Dre Archer - Last Filed: 08/22/16 12:17> Time of Encounter: 11:55 - Discharge Diagnosis (1) Transaminitis Status: Acute (2) Hepatitis B Status: Acute Qualifiers: Viral hepatitis chronicity: acute Hepatic coma status: without hepatic coma Hepatitis delta agent presence: without delta-agent Qualified Code(s): B16.9 - Acute hepatitis B without delta-agent and without hepatic coma (3) Jaundice Status: Acute (4) IV drug user Status: Acute (5) Anemia Status: Acute (6) Coagulopathy Status: Acute (7) Hypoalbuminemia Status: Acute (8) Hyperkalemia Status: Acute (9) Metabolic acidosis Status: Acute (10) DVT prophylaxis Status: Acute - Discharge Medications Home Medications: Enoxaparin [Lovenox] 40 mg SQ 0700 syringe 08/22/16 [Rx] Ibuprofen [Motrin] 400 mg PO Q6HR PRN #0 tablet 08/22/16 [Rx] Magnesium Oxide [Mag-Ox] 400 mg PO BID tablet 08/22/16 [Rx] Morphine [Morphine Sulfate] 2 mg IVP Q4HR PRN #0 syringe 08/22/16 [Rx] Naloxone [Narcan] 0.4 mg IVP Q2MIN PRN #0 inj 08/22/16 [Rx] Nicotine Patch [Nicoderm] 21 mg TD DAILY patch.td24 08/22/16 [Rx] Ondansetron [Zofran] 4 mg IVP Q6HR PRN #0 vial 08/22/16 [Rx] OxyCODONE Immed Rel [Roxicodone 5 MG] 5 mg PO Q6HR PRN #0 tablet 08/22/16 [Rx] Pantoprazole [Protonix] 40 mg IVP DAILY vial 08/22/16 [Rx] Allergies/Adverse Reactions: Allergies No Known Allergies Allergy (Verified 08/21/16 14:34) Procedures/tests Complete & Pending: Procedures Performed prior 72 hours Category Date Time Status MR abdomen wo con [MR] Stat MRI 08/21/16 09:42 Draft Date of admission: 08/19/16 04:02 Primary care physician: PCP NO Consults: 08/19/16 04:31 Consult to Production Ski Repairer [CONS] Routine Reason for SW Consult: IVDA interested in seeking treatment. Please help find patient resources for treatment. 08/19/16 14:37 Consult to Gastroenterology [CONS] Routine Consulting Provider: Freda Berrios Reason for Consult: jaundice, abd pain Call Completed: Yes 08/20/16 09:51 Consult to Interpret Exam [CONS] Routine Consulting Provider: Makenna Doyle I Consult to Interpret Exam: Interpret EEG - Patient Status Disposition: Transfer Other Condition: Serious Functional capacity at discharge: independent ambulation Overall status at discharge: patient is not back to baseline - Discharge Instructions Follow Up With: NO,PCP [Primary Care Provider] - - Diet and Activity Activity: increase activity as tolerated Diet: advance to your usual diet Interval History: Patient's RUQ pain has not improved relative to last couple of days. She has no new complaints Hospital course: Ms. Gonzáles is a 35 year old female who presented to the ED 08/18/16 complaining of right upper quadrant pain and jaundice for about the past 2 weeks. She admitted to using IV heroin within the past 2 weeks. She denies taking Tylenol. Patient had significant elevation of transaminases: AST = 1584, ALP = 1057. These remained elevated on day 5 of hospitalization. Additionally, total bilirubin was elevated at 11.3 on admission and this was trending up to 14.7 today. INR has been stable at 1.6. Hepatitis B testing positive with reactive hep B core IgM antibody and hep B surface antigen. HIV nonreactive. We also ordered testing for hep C as well as EBV which are currently pending. CT abdomen/pelvis showed contracted gallbladder, severe thickening, and periportal edema. HIDA scan did not show emptying defect however gallbladder was not visualized so MRCP was performed which confirmed a thickened gallbladder , periportal edema but was negative for filling defect or biliary dilatation. Patient continues to have RUQ pain. Her WBC count is normal at 8.4 and she is afebrile. Contacted [facility] and production artist Dr. Munguia kindly accepted this patient. Will transfer to [facility] - Time Spent with Patient Total time spent providing and/or coordinating discharge services: - Constitutional Vitals: Temp Pulse Resp BP Pulse Ox 97.5 F L 69 16 99/63 94 L 08/22/16 11:24 08/22/16 11:24 08/22/16 11:24 08/22/16 11:24 08/22/16 11:24 General appearance: Present: A&O X 3 (jaundiced), no acute distress, answers questions appropriately - Head Head exam: Present: atraumatic, normocephalic - Eye Eye exam: Present: PERRL, conjuntiva pink, sclera anicteric Pupils: Present: PERRL - Neck Neck exam general surgery: Present: supple, trachea midline. Absent: lymphadenopathy - Respiratory Respiratory exam: Present: CTAB. Absent: accessory muscle use, rales, rhonchi, wheezes - Cardiovascular Cardiovascular exam: Present: RRR, +S1, +S2. Absent: diastolic murmur, gallop, rubs, systolic murmur - GI/Abdominal GI/Abdominal exam: Present: hepatomegaly, normal bowel sounds, soft, tenderness , no peritoneal signs. Absent: distended - Extremities Exam Extremities exam: Present: warm, radial pulses palpable and symetrical. Absent : calf tenderness, cyanotic, pedal edema - Neurological Exam Neurological exam: Present: CN II-XII intact, oriented X3, no focal deficits. Absent: pronater drift, facial droop, speech deficit - Skin Skin exam: Present: dry, intact <Anthony Zavala H - Last Filed: 08/22/16 15:36> Date of Encounter: 08/22/16 Procedures/tests Complete & Pending: Procedures Performed prior 72 hours Category Date Time Status MR abdomen wo con [MR] Stat MRI 08/21/16 09:42 Draft Date of admission: 08/19/16 04:02 Primary care physician: PCP NO Consults: 08/19/16 04:31 Consult to Production Ski Repairer [CONS] Routine Reason for SW Consult: IVDA interested in seeking treatment. Please help find patient resources for treatment. 08/19/16 14:37 Consult to Gastroenterology [CONS] Routine Consulting Provider: Gastroenterology Agustina Reason for Consult: jaundice, abd pain Call Completed: Yes 08/20/16 09:51 Consult to Interpret Exam [CONS] Routine Consulting Provider: Makenna Doyle I Consult to Interpret Exam: Interpret EEG - Patient Status Functional capacity at discharge: independent ambulation Overall status at discharge: patient is not back to baseline - Diet and Activity Activity: increase activity as tolerated Diet: low fat, low cholesterol Hospital course: Ms. Gonzáles is a 35 year old female - Time Spent with Patient Total time spent providing and/or coordinating discharge services: - Constitutional Vitals: Temp Pulse Resp BP Pulse Ox 98.7 F 60 14 99/61 96 08/22/16 14:41 08/22/16 14:41 08/22/16 14:41 08/22/16 14:41 08/22/16 14:41 - Attending Attestation time spent : 40 minutes acute hepatitis B not improving. EBV and CMV pending I examined this patient and my medical decision-making was reviewed with the ENGINEERING PROJECT DESIGNER/PA/Advanced Practice Nurse/Resident Physician. I agree with the documented findings, disposition and treatment plan as described except to the extent set forth below.
[2016-08-22 12:39] LABS: Hepatitis C Virus Antibody Nonreactive (Nonreactive)
[2016-08-22 13:02] LABS: Ferritin 1953 ng/ml (5-204)
[2016-08-22 13:17] LABS: Folate 11.2 ng/mL (7.0-31.4)
[2016-08-22 13:42] LABS: Hepatitis A Antibody IgM Nonreactive (Nonreactive)
[2016-08-22 13:43] LABS: Hepatitis B Core IgM Reactive (Nonreactive); Hepatitis B Surface Antigen Reactive (Nonreactive)
[2016-08-22 19:33] VITALS: BP 105/67
[2016-08-26 10:08] LABS: HBV Quant Interpretation DETECTED (Not Detected); HBV Quant Log by PCR 4.2 log IU
[2016-08-26 10:42] LABS: Cytomegalovirus DNA (PCR) NOT DETECTED
== END 2016-08-22 21:56 | disposition other institution (70) ==
LOC: EMEROO 19:41 → 3ANU 19:41 → SUATTDRO 08-19 04:02
PROVIDERS: ADMIT Hospitalist; ATTEND Internal Medicine